=== PATIENT | male | born 1955 | race Caucasian/White ===

== ENCOUNTER → 2017-12-08 09:19 | Outpatient (CLI) | payer OTHER, SELFPAY ==
--- NOTE | 2017-11-12 14:35 | EKG12_ITS ---
Test Reason : PRE-OP Blood Pressure : / mmHG Vent. Rate : 064 BPM Atrial Rate : 064 BPM P-R Int : 188 ms QRS Dur : 090 ms QT Int : 416 ms P-R-T Axes : 025 -15 -04 degrees QTc Int : 429 ms Normal sinus rhythm Inferior infarct , age undetermined Abnormal ECG Confirmed by YOLY HOLCOMB, ANN ([id number]), image editor JAYCEE HILL ([id number]) on 11/13/2017 11:35:03 AM Referred By: GERI Confirmed By:ANN FREDERICK MD
[2017-11-12 15:18] LABS: Hematocrit 49.4 % (40-54); Hemoglobin 16.1 g/dl (13.0-16.5); Mean Corp Hgb Conc 32.6 g/gl (32-36); Mean Corpuscular Hgb 29.8 pg (27.0-32.0); Mean Corpuscular Volume 91.3 fL (80-94); Mean Platelet Vol. 11.7 fl (6.2-12.0); Platelet Count 144 K/mm3 (150-450); RBC Distribution Width CV 13.7 % (11.6-14.6); RBC Distribution Width SD 45.1 fl (35.1-43.9); Red Blood Count 5.41 M/mm3 (4.6-6.2); White Blood Count 6.5 K/mm3 (4.4-11.0)
[2017-11-12 15:31] LABS: Hemoglobin A1c 6.6 % (4.2-6.3)
[2017-11-12 15:44] LABS: Anion Gap 7 (5-15); BUN 13 mg/dL (7-18); BUN/Creat Ratio 16.4 RATIO (10-20); Calcium,Total 8.6 mg/dL (8.5-10.1); Chloride 106 mmol/L (98-107); Creatinine, Serum 0.79 mg/dL (0.70-1.30); EST Glomerular Filtration Rate 105 mL/min (>60); Est Glom Filt Rate - Afr Amer 127 mL/min (>60); Glucose 92 mg/dL (70-110); Potassium 3.6 mmol/L (3.5-5.1); Sodium Level 143 mmol/L (136-145)
[2017-11-12 15:51] LABS: Scan Indicated on CBC? Y/N NO
== END ==
PROVIDERS: Family Provider Family Medicine Geriatric Medicine; PCP Family Medicine Geriatric Medicine; Visit Provider Surgery
DX: Z01.818 Encounter for other preprocedural examination (principal); I10 Essential (primary) hypertension; E11.9 Type 2 diabetes mellitus without complications
CPT/HCPCS: 36415; 80048; 83036; 85027; 93005

== ENCOUNTER → 2017-12-22 06:46 | Outpatient (CLI) | payer OTHER, SELFPAY ==
--- NOTE | 2017-12-22 10:00 | ECHOCS_ITS ---
Reason For Study: murmur Procedure This was a 2D Doppler, Color Flow transthoracic echocardiogram. The exam was of fair technical quality due to body habitus. Exam performed in department. Left Ventricle Normal LV size. Left ventricular systolic function is normal. The estimated ejection fraction is 60 %. Transmitral doppler flow suggestive of impaired relaxation of left ventricle. No regional wall motion abnormalities noted. Right Ventricle Normal RV size. Normal systolic function. Atria The left atrium is mildly enlarged. Normal right atrium. No doppler evidence for ASD. Mitral Valve There is no mitral annular calcification. Normal mitral valve. Trivial mitral valve insufficiency. Tricuspid Valve Normal tricuspid valve. Trivial tricuspid valve insufficiency. Right ventricular systolic pressure estimated to be 33 mmHg. Aortic Valve Trisinus/trileaflet aortic valve. Normal aortic valve. Pulmonic Valve The pulmonic valve is not well visualized. Trivial pulmonic valve insufficiency. Great Vessels Borderline enlarged aortic root. Pericardium/Pleural No pericardial effusion. Medication Diluted definity 4.0ml given slow IV push to enhance endocardial definition. MMode/2D Measurements & Calculations LVIDd: 4.7 cm IVSd: 1.4 cm Ao root diam: 3.8 cm LVIDs: 3.1 cm LVPWd: 1.2 cm LA dimension: 3.9 cm RVDd: 3.0 cm FS: 33.5 % LAV(MOD-bp): 82.0 ml LA A4 area: 24.3 cm2 RA A4 area: 15.7 cm2 LAV(MOD-bp) Indexed: 35.8 ml/m2 LAV(MOD-sp2): 70.6 ml LAV(MOD-sp4): 79.5 ml Time Measurements MV dec time: 0.26 sec Doppler Measurements & Calculations MV E max krunal: 51.4 cm/sec Lat Peak E' Krunal: 4.1 cm/sec Med Peak E' Krunal: 5.4 cm/sec MV A max krunal: 77.6 cm/sec E/E' lat: 12.7 E/E' med: 9.5 MV E/A: 0.66 Ao V2 max: 126.1 cm/sec LV V1 max: 87.8 cm/sec PA V2 max: 87.2 cm/sec Ao max P.4 mmHg LV V1 max P.1 mmHg TR max krunal: 272.6 cm/sec TR max P.7 mmHg Interpretation Summary Left ventricular systolic function is normal. The estimated ejection fraction is 60 %. The left atrium is mildly enlarged. Trivial mitral valve insufficiency. Trivial tricuspid valve insufficiency. Trivial pulmonic valve insufficiency. Borderline enlarged aortic root. Right ventricular systolic pressure estimated to be 33 mmHg. Transmitral doppler flow suggestive of impaired relaxation of left ventricle Ordering Physician: Kofi Boykin Referring Physician: Harry Mason Chi Performed By: Delphine Allen RDCS, RVT
--- NOTE | 2017-12-22 13:50 | STRESSREP ---
Stress Test Report Date: 12/22/2017 Procedure: Exercise tolerance test/imaging study Indications: Abnormal ECG; preoperative cardiovascular evaluation Consent: Per the patient Procedure: The patient underwent exercise on a Jose David protocol for 6 minutes and 30 seconds completing stage II and 30 seconds of stage III achieving a peak heart rate of 144 bpm (91% predicted maximal heart rate) with a peak blood pressure 186/90 mmHg and a peak MET capacity of approximately 7 MET's. The baseline ECG demonstrated normal sinus rhythm. The peak exercise ECG demonstrated no obvious ECG changes. There was a rare PVC/ventricular couplet during exercise and a rare PVC during recovery. The functional capacity was considered average. There was no report of chest discomfort during exercise or recovery. The examination was discontinued secondary to fatigue. Impression: 1. Technically adequate (percent predicted maximal heart rate greater than 85%) exercise tolerance test 2. Peak exercise ECG with no obvious ECG changes 3. Rare PVCs/ventricular couplet during exercise and a rare PVC during recovery 4. Nuclear images pending Myocardial perfusion imaging study: Technique: The patient was injected with 14.7 mCi of technetium 99m Cardiolite and subsequently rest SPECT Cardiolite nuclear imaging was obtained in the horizontal long, vertical long, and short axis views. The patient underwent exercise on a Jose David protocol for 6 minutes and 30 seconds completing stage II and 30 seconds of stage III achieving a peak heart rate of 144 bpm (91% predicted maximal heart rate) with a peak blood pressure 186/90 mmHg and a peak MET capacity of approximately 7 MET's the patient was injected with 44.4 mCi of technetium 99m Cardiolite and subsequently stress SPECT currently nuclear imaging was obtained in the horizontal long, vertical long, and short axis views. A gated Cardiolite study at peak stress was obtained. Interpretation: Rest and stress SPECT currently nuclear imaging status post realignment, normalization, and attenuation correction, demonstrates the appearance of relative uniform tracer uptake and myocardial perfusion appearing within normal limits. There is end-systolic thickening and brightening. The gated Cardiolite study demonstrates myocardial thickening and end were wall motion. The reported LVEF is 62%. Impression: 1. Rest and stress SPECT currently nuclear imaging demonstrates the appearance of relative uniform tracer uptake and myocardial perfusion appearing within normal limits. 2. The gated Cardiolite study demonstrates an LVEF of 62%. This note was generated with [employer] software. It may contain incorrect words, spelling, and punctuation that were not noted in checking the note before signing.
--- NOTE | 2017-12-22 13:58 | STRESSREP_ITS ---
Stress Test Report Date: 12/22/2017 Procedure: Exercise tolerance test/imaging study Indications: Abnormal ECG; preoperative cardiovascular evaluation Consent: Per the patient Procedure: The patient underwent exercise on a Jose David protocol for 6 minutes and 30 seconds completing stage II and 30 seconds of stage III achieving a peak heart rate of 144 bpm (91% predicted maximal heart rate) with a peak blood pressure 186/90 mmHg and a peak MET capacity of approximately 7 MET's. The baseline ECG demonstrated normal sinus rhythm. The peak exercise ECG demonstrated no obvious ECG changes. There was a rare PVC/ventricular couplet during exercise and a rare PVC during recovery. The functional capacity was considered average. There was no report of chest discomfort during exercise or recovery. The examination was discontinued secondary to fatigue. Impression: 1. Technically adequate (percent predicted maximal heart rate greater than 85% ) exercise tolerance test 2. Peak exercise ECG with no obvious ECG changes 3. Rare PVCs/ventricular couplet during exercise and a rare PVC during recovery 4. Nuclear images pending Myocardial perfusion imaging study: Technique: The patient was injected with 14.7 mCi of technetium 99m Cardiolite and subsequently rest SPECT Cardiolite nuclear imaging was obtained in the horizontal long, vertical long, and short axis views. The patient underwent exercise on a Jose David protocol for 6 minutes and 30 seconds completing stage II and 30 seconds of stage III achieving a peak heart rate of 144 bpm (91% predicted maximal heart rate) with a peak blood pressure 186/90 mmHg and a peak MET capacity of approximately 7 MET's the patient was injected with 44.4 mCi of technetium 99m Cardiolite and subsequently stress SPECT currently nuclear imaging was obtained in the horizontal long, vertical long, and short axis views. A gated Cardiolite study at peak stress was obtained. Interpretation: Rest and stress SPECT currently nuclear imaging status post realignment, normalization, and attenuation correction, demonstrates the appearance of relative uniform tracer uptake and myocardial perfusion appearing within normal limits. There is end-systolic thickening and brightening. The gated Cardiolite study demonstrates myocardial thickening and end were wall motion. The reported LVEF is 62%. Impression: 1. Rest and stress SPECT currently nuclear imaging demonstrates the appearance of relative uniform tracer uptake and myocardial perfusion appearing within normal limits. 2. The gated Cardiolite study demonstrates an LVEF of 62%. This note was generated with [employer] software. It may contain incorrect words, spelling, and punctuation that were not noted in checking the note before signing.
== END ==
PROVIDERS: Family Provider Family Medicine Geriatric Medicine; PCP Family Medicine Geriatric Medicine; Visit Provider Internal Medicine Cardiovascular Disease
DX: R94.31 Abnormal electrocardiogram [ECG] [EKG] (principal); R01.1 Cardiac murmur, unspecified
CPT/HCPCS: 78452; 93017; 93306; A9500; Q9957; A4216; C8929

== ENCOUNTER 2018-01-26 05:19 | Day surgery (SDC) | payer OTHER, SELFPAY ==
[2018-01-20 10:12] VITALS: BP 139/86; PULSE 69; RESP 18; TEMP 37; O2SAT 96; BMI 32.5
--- NOTE | 2018-01-20 10:30 | SDCEKG_ITS ---
Test Reason : Blood Pressure : / mmHG Vent. Rate : 067 BPM Atrial Rate : 067 BPM P-R Int : 190 ms QRS Dur : 092 ms QT Int : 410 ms P-R-T Axes : 010 -19 -08 degrees QTc Int : 433 ms Normal sinus rhythm Inferior infarct , age undetermined Abnormal ECG Confirmed by YOLY HOLCOMB, ANN ([id number]), acquisition editor JAYCEE HILL ([id number]) on 01/22/2018 1:36:09 PM Referred By: Angel Gregorio Confirmed By:ANN FREDERICK MD
--- NOTE | 2018-01-20 11:00 | RAD_ITS ---
STUDY: X-RAY CHEST REASON FOR EXAM: Male, 63 years old. Preoperative evaluation. History of bronchitis. TECHNIQUE: PA and lateral views of the chest. COMPARISON: None. FINDINGS: Mild elevation of the right hemidiaphragm. Mild increased linear markings at the left lung base suggestive of atelectasis and/or scarring. Normal size heart. Normal mediastinum and georges. Normal visualized pulmonary arteries. There is atherosclerotic tortuosity of the aortic arch and descending thoracic aorta. There are diffuse degenerative changes of the visualized thoracic spine. Multiple healed left rib fractures. There is no demonstrated abnormality of the visualized soft tissue structures of the upper abdomen. RAD/Chest PA and Lateral IMPRESSION: Mild degree of increased markings at the left lung base suggestive of underlying atelectasis and/or scarring. Electronically Signed: Jerel Dotson MD at 11:34 EDT Tel [phone], Service support ,
[2018-01-20 11:46] LABS: Hematocrit 48.1 % (40-54); Hemoglobin 15.9 g/dl (13.0-16.5); Mean Corp Hgb Conc 33.1 g/gl (32-36); Mean Corpuscular Hgb 29.9 pg (27.0-32.0); Mean Corpuscular Volume 90.6 fL (80-94); Mean Platelet Vol. 12.1 fl (6.2-12.0); Platelet Count 149 K/mm3 (150-450); RBC Distribution Width CV 13.5 % (11.6-14.6); Red Blood Count 5.31 M/mm3 (4.6-6.2); White Blood Count 6.6 K/mm3 (4.4-11.0)
[2018-01-20 11:52] LABS: Scan Indicated on CBC? Y/N NO
[2018-01-20 12:45] LABS: Anion Gap 6 (5-15); BUN 13 mg/dL (7-18); BUN/Creat Ratio 15.3 RATIO (10-20); Calcium,Total 8.4 mg/dL (8.5-10.1); Chloride 107 mmol/L (98-107); Creatinine, Serum 0.85 mg/dL (0.70-1.30); EST Glomerular Filtration Rate 97 mL/min (>60); Est Glom Filt Rate - Afr Amer 117 mL/min (>60); Estimated Creatinine Clearance 99.22 ml/min; Glucose 114 mg/dL (74-106); Potassium 3.9 mmol/L (3.5-5.1); Sodium Level 143 mmol/L (136-145)
[2018-01-20 12:54] LABS: Hemoglobin A1c 6.4 % (4.2-6.3)
--- NOTE | 2018-01-26 | HERN_PTH ---
PATIENT: MARY ALICE YAÑEZ [place] [facility] [id number] AGE/SX: 63/M ROOM: RE01/26/[address]: Dr. Angel Gregorio MD : [id number] BED: DIS: 01/26/2018 SPEC #: [id number] RECD: 01/26/18 11:21 STATUS: WILMA MARION #: [id number] SCOTT: 01/26/18 00:[address]: Angel Gregorio DEPT: SURGICAL PATHOLOGY RECD BY: Jerel Astudillo ENTERED: 01/26/18 11:22 SP TYPE: Hernia OTHR DR: Dr. Harry Mason MD Tissues: A - HERNIA B - Gallbladder, NOS Procedures: Surgery Specimen Level II Surgery Specimen Level III HEADER OPERATION: Laparoscopic cholecystectomy with IOC; ventral hernia repair at umbilicus PRE-OP DIAGNOSIS: Chronic cholecystitis, gallbladder polyp, ventral hernia at umbilicus TISSUE SUBMITTED: A ? Hernia sac and contents, B - Gallbladder MICROSCOPIC DIAGNOSIS A. Hernia sac and contents, herniorrhaphy: Consistent with hernia sac with lobulated fat contents showing fat necrosis, fibrosis and mild chronic inflammation. B. Gallbladder, cholecystectomy: Cholesterolosis and chronic cholecystitis. Minute fragment of hepatic parenchyma with mild microvesicular and macrovesicular steatosis. AM:moon 01/27/18 MICROSCOPIC DESCRIPTION Slides are reviewed. GROSS DESCRIPTION A - Received in fixative is one container labeled with the patient's name and designated hernia sac and contents. The specimen consists of a sac-like fragment of baeza soft tissue measuring 7 x 4 x 0.8 cm. Sections reveal yellow-baeza cut surfaces with focal chalky appearance. Manager Fraud sections are submitted in one cassette. B - Received is one container labeled with the patient's name and designated gallbladder. The specimen consists of a gallbladder measuring 10 x 4.5 x 4.2 cm. The external surface is smooth and glistening. Focally, it is granular, hemorrhagic and contains cautery artifact. The lumen of the gallbladder contains greenish-yellow bile and no stones. The mucosa is bile-stained and without any mass lesions. The gallbladder wall averages 0.2 cm in thickness and displays chalky, yellow discoloration. Manager Fraud sections of the gallbladder and the cystic duct are submitted in one cassette. / AM:moon 01/26/18 TC:3 CPT: 85516, 12943
[2018-01-26 06:00] VITALS: BMI 32.5
--- NOTE | 2018-01-26 06:04 | PCM.HP.STD ---
Problem List (1) Chronic cholecystitis Status: Acute (2) Gallbladder polyp Status: Acute History of Present Illness Date of Admission: 01/26/18 The patient is a 63 year old M who was evaluated with a gallbladder ultrasound October 08, 2017. There was sludge in the gallbladder. 2 small polyps noted the common bile duct was normal. Patient's had a previous rib fracture. Patient has a midline supraumbilical ventral hernia and a additional separate umbilical hernia. He has been having problems with right upper quadrant pain. Postprandial discomfort. 3 weeks ago he had bronchitis was placed on antibiotics and is improved. He has improved from his rib fractures. He is presenting now for planned laparoscopic cholecystectomy. Subsequent to that then he would like to plan a laparoscopic ventral herniorrhaphy of his 2 hernias. Past Medical History Past Medical History (Chronic Problems): Chronic Problems (Last Reviewed 12/03/17 @ 15:15 by Maryellen Calix) Cough (Chronic) Normal previous PFT Allergic rhinitis (Chronic) HTN (hypertension) (Chronic) Allergies cortisone Allergy (Severe, Verified 01/20/18 10:08) Unknown Sulfa (Sulfonamide Antibiotics) Allergy (Mild, Verified 01/20/18 10:08) Unknown Home Medications: Ambulatory Orders Medication Instructions Recorded aspirin 81 mg tablet,delayed 81 mg PO QDAY 10/22/17 release cholecalciferol (vitamin D3) 50,000 unit PO QWEEK 10/22/17 50,000 unit capsule losartan 50 mg tablet 50 mg PO DAILY 10/22/17 metformin 500 mg tablet 500 mg PO DAILY 10/22/17 Lecithin 1,200 mg PO DAILY 11/12/17 beclomethasone dipropionate 80 2 inh INTRANASAL QDAY PRN g 12/03/17 mcg/actuation nasal HFA inhaler coenzyme Q10 200 mg capsule 200 mg PO QDAY 12/03/17 Guaifenesin [Mucinex] 600 mg PO Q12H PRN PRN 01/20/18 Smoking Status: Never smoker Review of Systems Constitutional: Denies: Anorexia Eyes: Denies: Blurred vision HEENT: Denies: Difficulty Hearing Cardiovascular: Denies: Chest Pain Respiratory: Reports: Cough Gastrointestinal: Reports: Abdominal Pain Genitourinary: Denies: Dysuria Musculoskeletal: Denies: Arm Pain Skin: Denies: Dryness Neurological: Denies: Balance problems Psychiatric: Denies: Anxiety Endocrine: Denies: Change in Body Habitus Hematologic/ Lymphatic: Denies: Adenopathy VTE Information - Inpt Only VTE Present on Admission: No Patient Problems: Active and Suspected Problems (Last Reviewed 12/03/17 @ 15:15 by Maryellen Calix) Chronic cholecystitis (Acute) Gallbladder polyp (Acute) - Physical Exam General: Alert, Oriented x3, Cooperative, No apparent distress HEENT: Atraumatic Oral: Moist Mucosa Neck: Supple Lungs: Clear to auscultation Cardiovascular: Regular rate, Regular Rhythm Abdomen: Bowel Sounds Present, Soft, - - Overweight, ventral hernias noted at the umbilicus and superiorly Extremities: No clubbing Skin: No rashes Lymphatic: No Cervical, Supraclavicular, or Inguinal Adenopathy Neurological: Cranial nerves II-XII grossly intact Vital Signs Temp Pulse Resp BP Pulse Ox 98.6 F 69 18 139/86 H 96 01/20/18 10:12 01/20/18 10:12 01/20/18 10:12 01/20/18 10:12 01/20/18 10:12 Oxygen Delivery Method Room Air Weight: 246 lb 4.101 oz Body Mass Index (BMI) 32.5 Assessment/Plan Active and Suspected Problems (Last Reviewed 12/03/17 @ 15:15 by Maryellen Calix) Chronic cholecystitis (Acute) Gallbladder polyp (Acute) I plan to proceed with a laparoscopic cholecystectomy remove the gallbladder and anticipated polyps. I plan to do this via a infraumbilical incision to avoid complications with the umbilical hernia. He is aware of the technique, benefits, risks, alternatives. In the future that I plan a laparoscopic ventral incisional herniorrhaphy of the umbilical hernia and supraumbilical hernia. There is definitive reason and means of removing the gallbladder definitive thing having pathology prior to performing a ventral hernia repair. The patient has had an opportunity to ask and have questions answered. He desires to proceed as noted. He states that his cough and pulmonary situation is improved since October. Angel Gregorio M.D., F.A.C.S.
[2018-01-26 06:06] LABS: Bedside Glucose 122 mg/dL (70-110)
--- NOTE | 2018-01-26 06:52 | PCM.DC.GS ---
Discharge Diet: Light diet - advance as tolerated - if you have questions about your diet instructions, please talk to you doctor. Discharge Activity: May Not Drive - for 1 week or while taking narcotic pain medicine. May shower in (days): 1 Lifting Restrictions: 10 pounds Call your doctor if your incision/area has: Continuous Slow Oozing, Sudden Increased Bleeding, Increased Pain/ Swelling, Increased Redness, Foul Smelling Discharge Call your doctor if you observe: Fever of 101 or Higher Suture Line Care: Avoid Pulling/Pushing, Avoid Pinching/Bending Additional Dressing/Incision Instructions:: Change or remove dressing in 4 days. Leave steri-strips in place for 1 week. Allergies/Adverse Reactions: Allergies cortisone Allergy (Severe, Verified 01/20/18 10:08) Unknown Sulfa (Sulfonamide Antibiotics) Allergy (Mild, Verified 01/20/18 10:08) Unknown Medications to take at Discharge aspirin 81 mg tablet,delayed release 81 mg PO QDAY 10/22/17 cholecalciferol (vitamin D3) 50,000 unit capsule 50,000 unit PO QWEEK 10/22/17 losartan 50 mg tablet 50 mg PO DAILY 10/22/17 metformin 500 mg tablet 500 mg PO DAILY 10/22/17 Lecithin 1,200 mg PO DAILY 11/12/17 beclomethasone dipropionate 80 mcg/actuation nasal HFA inhaler 2 inh INTRANASAL QDAY PRN g 12/03/17 coenzyme Q10 200 mg capsule 200 mg PO QDAY 12/03/17 Guaifenesin [Mucinex] 600 mg PO Q12H PRN PRN 01/20/18 Primary Care Physician: Harry Mason Chi, MD [Primary Care Provider] - Please Follow Up With: Angel Gregorio MD - [phone] When: Call to make an appointment to be seen in about 10 days.
[2018-01-26] MEDS: Cefazolin 2 GM in 0.9% Normal Saline 100 ML IV (07:11)
--- NOTE | 2018-01-26 07:15 | RAD_ITS ---
STUDY: INTRAOPERATIVE CHOLANGIOGRAM. REASON FOR EXAM: Male, 63 years old. Laparoscopic cholecystectomy. FLUOROSCOPY TIME (if supplied): (24 seconds) minutes/seconds TECHNIQUE: An intraoperative cholangiogram was performed by the surgeon. Imaging was submitted. COMPARISON: None. FINDINGS: The common bile duct is not dilated. No intraluminal filling defect is seen. There is free flow of contrast into the duodenum. RAD/Cholangiogram/ O R,Initial IMPRESSION: Unremarkable examination. Electronically Signed: Jerel Dotson MD at 11:05 EDT Tel [phone], Service support ,
[2018-01-26] MEDS: Bupivacaine Mpf 0.5% 30 ML VIAL (07:30)
--- NOTE | 2018-01-26 08:37 | PCM.OPRPT ---
Problem List (1) Chronic cholecystitis Status: Acute (2) Gallbladder polyp Status: Acute Report of Operation Date of Procedure: 01/26/18 Pre-Operative Diagnosis: Chronic cholecystitis, gallbladder polyps,Umbilical and ventral hernias Post-Operative Diagnosis: Chronic cholecystitis, gallbladder polyps, incarceratedUmbilical hernia Surgery/Procedure Performed:: Laparoscopic cholecystectomy with cholangiograms. Incarcerated umbilical herniorrhaphy Description of Surgical Findings:: Timeout and informed consent was obtained. 63-year-old gent was taken the operative placement table underwent general ventricular-based anesthesia. Ancef 2 g given intravenous preoperatively. The abdomen sterilely prepped draped. It became apparent that since his previous appointment in October 2017 he has had bronchitis with vigorous coughing. What previously was a simple umbilical hernia now demonstrates clinical evidence of tight incarceration. Although I had previously planned not to address the hernia at this time I felt that there was no other option. A curvilinear infraumbilical incision was created sharp dissection carried down to Herr tissue tight incarceration and a very tight sac was encountered. I dissected down to the neck were I incised the sac. There was no bowel involvement. Hemostasis obtained with 0 Vicryl ligatures and electrocautery. The sac and contents were released and then submitted. This is consistent with incarcerated likely partially necrotic preperitoneal fat. As on catheter was inserted. The abdomen was insufflated with CO2. There is a separate hernia ventral hernia that is superior to the umbilical hernia. Fortunately currently there are no contents within that. Five-minute trochars are placed in the epigastrium and right upper quadrant. The gallbladder was distracted. There was a significant amount of fibrofatty tissue at the infundibular area. This had to be carefully bluntly dissected free. The critical view was achieved with the cystic duct and cystic artery identified. A Hem-o-cara clip was placed on the cystic duct incision in the cystic duct cholangiogram cath was inserted through a 14-gauge Angiocath and fluoroscopically controlled claims grams were obtained demonstrating normal ductal anatomy and free flow into the small bowel. The client Mitchell catheter was removed and 2 Hem-o-cara clips were placed on the cystic duct prior to transecting it. Cystic artery was clipped twice proximally prior to transecting it. The gallbladder was tediously dissected free from the liver bed using electrocautery. Complete hemostasis was intact. To further assure hemostasis a piece of fibular was placed in the liver bed portal area. The right upper quadrant was irrigated and aspirated free of excess fluid. The gallbladder was placed in retrieval bag and exited at the umbilicus. The remaining trochars removed under visualization. The fascia at the umbilicus was approximated with simple sutures of 0 Nurolon in a transverse fashion. Skin edges proximate interrupted 4 Monocryl subdermal stitches. Steri-Strips Telfa and OpSite dressings applied. Sponge instrument and needle counts were reported to the surgeon to be correct. Blood loss was minimal. Specimens include the gallbladder and the incarcerated umbilical hernia sac and contents. Drains none. Blood loss minimal. Angel Gregorio M.D., F.A.C.S. Type of Anesthesia:: General Anesthesiologist: Luis Barry
[2018-01-26 09:03] VITALS: BP 139/86; BP 156/91; PULSE 96; RESP 18; TEMP 36.1; O2SAT 94
[2018-01-26 09:15] VITALS: BP 136/92; BP 139/86; PULSE 87; RESP 16; O2SAT 100
[2018-01-26 09:30] VITALS: BP 139/86; BP 149/84; PULSE 78; RESP 16; O2SAT 96
[2018-01-26 09:41] LABS: Bedside Glucose 149 mg/dL (70-110)
[2018-01-26 09:45] VITALS: BP 139/86; BP 153/89; PULSE 78; RESP 16; TEMP 36.3; O2SAT 97
[2018-01-26] MEDS: HYDROcodone Bitartrate/Apap 5/325 Tablet PO (10:08)
[2018-01-26 10:47] VITALS: BP 139/86
== END 2018-01-26 11:16 | disposition home or self-care (01) ==
LOC: SDC 05:19 → AC 05:20
PROVIDERS: Anesthesiology; Family Provider Family Medicine Geriatric Medicine; PCP Family Medicine Geriatric Medicine; Visit Provider Surgery
PROC: (CPT 47610; principal; 2018-01-26 06:55)
DX: K81.2 Acute cholecystitis with chronic cholecystitis (principal); K43.9 Ventral hernia without obstruction or gangrene; I10 Essential (primary) hypertension; E11.9 Type 2 diabetes mellitus without complications; K42.0 Umbilical hernia with obstruction, without gangrene; E78.00 Pure hypercholesterolemia, unspecified
CPT/HCPCS: 00790; 47563; 49587; 36415; 74300; 76000; 80048; 82962; 83036; 85027; 88302; 88304; J7120; J2405

== ENCOUNTER → 2018-02-12 09:09 | Outpatient (CLI) | payer OTHER, SELFPAY ==
[2018-02-12 11:29] LABS: Absolute Lymphocyte Count 1.52 X10^3/ul (0.83-4.51); Absolute Neutrophil Count 5.2 X10^3/uL (2.0-7.7); Basophil# 0.01 X10^3/uL; Basophil% 0.1 % (0-1); Eosinophil# 0.12 X10^3/uL; Eosinophils% 1.6 % (0-5); Hematocrit 51.1 % (40-54); Hemoglobin 17.1 g/dl (13.0-16.5); Lymphocyte # 1.52 X10^3/ul (4.0); Lymphocyte % 20.2 % (19-41); Mean Corp Hgb Conc 33.5 g/gl (32-36); Mean Corpuscular Hgb 29.7 pg (27.0-32.0); Mean Corpuscular Volume 88.7 fL (80-94); Mean Platelet Vol. 12.4 fl (6.2-12.0); Monocyte# 0.68 X10^3/uL; Monocyte% 9.1 % (0-10); Neutrophil # 5.17 X10^3/uL (2.7-7.7); Neutrophil % 68.9 % (47-70); Platelet Count 155 K/mm3 (150-450); RBC Distribution Width CV 13.8 % (11.6-14.6); RBC Distribution Width SD 44.8 fl (35.1-43.9); Red Blood Count 5.76 M/mm3 (4.6-6.2); White Blood Count 7.5 K/mm3 (4.4-11.0)
[2018-02-12 11:34] LABS: POSITIVE COUNT NO; POSITIVE DIFFERENTIAL NO; POSITIVE MORPHOLOGY NO
[2018-02-12 11:54] LABS: ALB/GLOB Ratio 0.9 RATIO (0.9-2.4); AST(SGOT) 21 U/L (15-37); Alanine Aminotransfer ALT/SGPT 39 U/L (16-61); Albumin, Serum 3.7 g/dL (3.2-5.0); Alkaline Phosphatase 76 U/L (45-117); Anion Gap 9 (5-15); BUN 17 mg/dL (7-18); BUN/Creat Ratio 18.3 RATIO (10-20); Calcium,Total 8.5 mg/dL (8.5-10.1); Chloride 104 mmol/L (98-107); Creatinine, Serum 0.93 mg/dL (0.70-1.30); EST Glomerular Filtration Rate 87 mL/min (>60); Est Glom Filt Rate - Afr Amer 105 mL/min (>60); Globulin 3.9 g/dL (2.2-4.2); Glucose 138 mg/dL (74-106); Potassium 3.9 mmol/L (3.5-5.1); Protein, Total 7.6 g/dL (6.4-8.2); Sodium Level 140 mmol/L (136-145); Thyroid Stim Hormone (TSH) 2.35 uIU/mL (0.358-3.74)
[2018-02-12 12:01] LABS: Vitamin D,25 Hydroxy 70.3 ng/mL (29.95-100.01)
== END ==
PROVIDERS: Family Provider Family Medicine Geriatric Medicine; PCP Family Medicine Geriatric Medicine; Visit Provider Family Medicine Geriatric Medicine
DX: E11.9 Type 2 diabetes mellitus without complications (principal); E55.9 Vitamin D deficiency, unspecified; I10 Essential (primary) hypertension
CPT/HCPCS: 36415; 80053; 82306; 84443; 85025

== ENCOUNTER → 2018-05-06 08:00 | Outpatient (CLI) | payer OTHER, SELFPAY ==
[2018-05-06 08:09] VITALS: BP 141/92; PULSE 66; RESP 14; TEMP 36.9; O2SAT 97; BMI 33.3
--- NOTE | 2018-05-06 08:44 | SDCEKG_ITS ---
Test Reason : Blood Pressure : / mmHG Vent. Rate : 062 BPM Atrial Rate : 062 BPM P-R Int : 198 ms QRS Dur : 086 ms QT Int : 412 ms P-R-T Axes : 024 -17 -08 degrees QTc Int : 418 ms Normal sinus rhythm Inferior infarct , age undetermined Abnormal ECG Confirmed by YOLY HOLCOMB, ANN ([id number]), video editor JAYCEE HILL ([id number]) on 05/10/2018 3:06:49 PM Referred By: Angel Gregorio Confirmed By:ANN FREDERICK MD
[2018-05-06 09:30] LABS: Hematocrit 45.2 % (40-54); Hemoglobin 15.4 g/dl (13.0-16.5); Mean Corp Hgb Conc 34.1 g/gl (32-36); Mean Corpuscular Hgb 30.6 pg (27.0-32.0); Mean Corpuscular Volume 89.7 fL (80-94); Mean Platelet Vol. 12.1 fl (6.2-12.0); Platelet Count 148 K/mm3 (150-450); RBC Distribution Width CV 13.6 % (11.6-14.6); RBC Distribution Width SD 44.5 fl (35.1-43.9); Red Blood Count 5.04 M/mm3 (4.6-6.2); White Blood Count 4.6 K/mm3 (4.4-11.0)
[2018-05-06 09:37] LABS: Scan Indicated on CBC? Y/N NO
[2018-05-06 09:49] LABS: Anion Gap 6 (5-15); BUN 13 mg/dL (7-18); BUN/Creat Ratio 13.9 RATIO (10-20); Calcium,Total 8.4 mg/dL (8.5-10.1); Chloride 109 mmol/L (98-107); Creatinine, Serum 0.94 mg/dL (0.70-1.30); EST Glomerular Filtration Rate 86 mL/min (>60); Est Glom Filt Rate - Afr Amer 104 mL/min (>60); Estimated Creatinine Clearance 87.14 ml/min; Glucose 122 mg/dL (74-106); Potassium 4.1 mmol/L (3.5-5.1); Sodium Level 144 mmol/L (136-145)
[2018-05-06 09:58] LABS: Hemoglobin A1c 6.5 % (4.2-6.3)
[2018-05-14 08:51] LABS: Bedside Glucose 118 mg/dL (70-110)
[2018-05-14 12:15] LABS: Bedside Glucose 155 mg/dL (70-110)
== END ==
LOC: PAT 05-18 08:34 → SDC 05-18 08:35
PROVIDERS: Family Provider Family Medicine; PCP Family Medicine; Visit Provider Surgery
DX: Z01.810 Encounter for preprocedural cardiovascular examination (principal); Z01.812 Encounter for preprocedural laboratory examination; R94.31 Abnormal electrocardiogram [ECG] [EKG]; K43.9 Ventral hernia without obstruction or gangrene
CPT/HCPCS: 36415; 80048; 82962; 83036; 85027; 93005; J7120

== ENCOUNTER 2018-05-14 13:13 | Observation (INO) | payer OTHER, SELFPAY ==
[2018-05-14] VITALS (11 sets, daily range): BP systolic 132–162; BP diastolic 80–92; PULSE 58–96; RESP 14–18; TEMP 35.9–37.1; O2SAT 94–100; BMI 33.3
--- NOTE | 2018-05-14 09:48 | DCINST_ITS ---
Discharge Diet: Light diet - advance as tolerated - if you have questions about your diet instructions, please talk to you doctor. Discharge Activity: May Not Drive - for 1 week or while taking narcotic pain medicine. May shower in (days): 1 Lifting Restrictions: 10 pounds Call your doctor if your incision/area has: Continuous Slow Oozing, Sudden Increased Bleeding, Increased Pain/ Swelling, Increased Redness, Foul Smelling Discharge Call your doctor if you observe: Fever of 101 or Higher Suture Line Care: Avoid Pulling/Pushing, Avoid Pinching/Bending Additional Dressing/Incision Instructions:: Change or remove dressing in 4 days. Leave steri-strips in place for 1 week. Allergies/Adverse Reactions: Allergies cortisone Allergy (Severe, Verified 04/29/18 14:07) Unknown Sulfa (Sulfonamide Antibiotics) Allergy (Mild, Verified 04/29/18 14:07) Unknown Medications to take at Discharge aspirin 81 mg tablet,delayed release 81 mg PO QDAY 10/22/17 cholecalciferol (vitamin D3) 50,000 unit capsule 50,000 unit PO QWEEK 10/22/17 losartan 50 mg tablet 50 mg PO DAILY 10/22/17 metformin 500 mg tablet 500 mg PO DAILY 10/22/17 Lecithin 1,200 mg PO DAILY 11/12/17 Hydrocodone Bitart/Apap 5-325 [[place] 5MG-325MG] 1 tablet PO Q6H PRN PRN 3 Days # 10 tablet 05/14/18 The following prescriptions were given: Hydrocodone Bitart/Apap 5-325 [[place] 5MG-325MG] 1 tablet PO Q6H PRN PRN 3 Days # 10 tablet PRN Reason: Pain Primary Care Physician: Stanislav Vergara MD [Primary Care Provider] - Test Results: Test results from this visit will be discussed in further detail at your follow- up appointment, if applicable. Please Follow Up With: Angel Gregorio MD - [phone] When: Call to make an appointment to be seen in about 10 days.
--- NOTE | 2018-05-14 10:05 | HERN_PTH ---
PATIENT: MARY ALICE YAÑEZ LOC: MS3 U#:[id number] AGE/SX: 63/M ROOM: [facility] [place] RE05/14/[address]: Dr. Angel Gregorio MD : [id number] BED: 1 DIS: 05/17/2018 SPEC #: [id number] RECD: 05/14/18 13:16 STATUS: WILMA MARION #: [id number] SCOTT: 05/14/18 10:[address]: Angel Gregorio DEPT: SURGICAL PATHOLOGY RECD BY: Jefry Barron ENTERED: 05/14/18 13:45 SP TYPE: Hernia OTHR DR: Dr. Rommel Vergara MD Tissues: HERNIA Procedures: Surgery Specimen Level II HEADER OPERATION: Ventral and umbilical hernia repair PRE-OP DIAGNOSIS: Ventral and umbilical hernia without obstruction or gangrene TISSUE SUBMITTED: Hernia sac and contents MICROSCOPIC DIAGNOSIS Hernia sac and contents: A piece of fibroadipose tissue consistent with hernia sac with focal area of hemorrhage and reactive changes. MIKKI:moon 05/17/18 MICROSCOPIC DESCRIPTION Slides are reviewed. GROSS DESCRIPTION Received in fixative is one container labeled with the patient's name and designated hernia sac and contents. The specimen consists of an irregular fragment of pink-yellow fibrofatty tissue measuring 7 x 5 x 3.8 cm. Sections reveal yellow fatty cut surfaces with focal organizing hemorrhage. The organizing hemorrhage area measures 2 x 1 x 1 cm. Calender Tender sections are submitted in one cassette. / AM:moon 05/14/18 TC:5 CPT: 15083
[2018-05-14] MEDS: BUPIVACAINE LIPOSOME/PF 20 ML VIAL OPERA.SITE (11:25)
--- NOTE | 2018-05-14 11:33 | PCM.OPRPT ---
Problem List (1) Incarcerated ventral hernia Status: Acute Report of Operation Date of Procedure: 05/14/18 Pre-Operative Diagnosis: Incarcerated supraumbilical ventral hernia Post-Operative Diagnosis: Incarcerated supraumbilical ventral hernia Surgery/Procedure Performed:: Laparoscopic ventral herniorrhaphy with ventral light ST mesh reference #[id number] lot number [id number] expiry date 03/06/2019 Description of Surgical Findings:: Amount and informed consent was obtained. 63-year-old gent was taken out from. He was placed on the table. Underwent general ventricular-based anesthesia. The abdomen was sterilely prepped draped. Ioban draping was utilized as well. Patient received 2 g of Ancef intravenously. A transverse incision was made supraumbilically at site of the incarcerated hernia sharp and blunt dissection identified this very fibrofatty incarcerated sac with suggestion of bowel involvement was not able to completely easily freelist the tissue was very thick and so I elected to gain access to a 5 mm Visiport technology in the right upper quadrant. 0.5% Marcaine was used as local anesthetic throughout the procedure total 20 cc was used local was instilled and a 5 mm Visiport was used to gain access in the right upper quadrant and direct visualization. The abdomen was insufflated with CO2 to a pressure of 10 mmHg pressure. 5 minute trocar inserted no of any trocar injuries inspection revealed that there had been a loop of small bowel within that hernia but with the air pressure released itself. I then used electrocautery to transect a very thickened fibrofatty sac and contents. I partially approximated that wound with interrupted 0 Nurolon [id number] sutures. Placed in a Roldan catheter. There is evidence of the umbilical incision that it just been recently closed relating to the patient's recent laparoscopic cholecystectomy there was felt to possibly be of further hernia more inferiorly P. Fatty fatty tissue was incised with hot scissors to allow for place for mesh to see. I utilized a a 17.8 x 22.9 piece of ventral light ST mesh was selected. I slightly shortened the length. I placed 4 corner sutures of 2-0 Prolene. The mesh was curled in place within the abdomen through the assigned catheter. 2 5 mm ports had been placed on the right abdomen and to family reports placed in the left midabdomen the mesh was unfurled. An 11 blade was used to make stab incisions and a grainy needle was used to parachuted the mesh up to the abdominal wall. I then removed the Roldan catheter and used [id number]-je-qrmzy sutures of 0 Nurolon to finish that fascial closure. Then you secure strap at the periphery at about 2 cm separations to completely secure the periphery of the mesh up against the anterior abdominal wall. I did utilize a total of 2 azul to secure the periphery of the mesh and the central portion the mesh to prevent seroma. Excellent coverage of the defect area was achieved. I then irrigated the mesh to allow for moisture. Major the greater omentum was down as far as I can get it to reach. I performed a tap block did this with Exparel 20 cc diluted with saline to 100 cc total. Block was performed under laparoscopic visualization. Finally trochars were removed the abdomen was allowed to deflate of CO2. Skin edges proximate interrupted 4 Monocryl subdermal stitches in an interrupted or running fashion. Steri-Strips and Telfa and OpSite dressings were applied. Sponge and instrument and needle counts were reported the surgeon for correct. Blood loss was minimal. The specimen includes the incarcerated hernia sac with fibrofatty contents. No drains. Blood loss minimal. The patient was taken to the recovery area in satisfactory condition. Angel Gregorio M.D., F.A.C.S. Type of Anesthesia:: General
[2018-05-14] MEDS: Bupivacaine Mpf 0.5% 30 ML VIAL (11:38)
--- NOTE | 2018-05-14 11:38 | OP.PCM_ITS ---
Problem List (1) Incarcerated ventral hernia Status: Acute Report of Operation Date of Procedure: 05/14/18 Pre-Operative Diagnosis: Incarcerated supraumbilical ventral hernia Post-Operative Diagnosis: Incarcerated supraumbilical ventral hernia Surgery/Procedure Performed:: Laparoscopic ventral herniorrhaphy with ventral light ST mesh reference #[id number] lot number [id number] expiry date 03/06/2019 Description of Surgical Findings:: Amount and informed consent was obtained. 63-year-old gent was taken out from. He was placed on the table. Underwent general ventricular-based anesthesia. The abdomen was sterilely prepped draped. Ioban draping was utilized as well. Patient received 2 g of Ancef intravenously. A transverse incision was made supraumbilically at site of the incarcerated hernia sharp and blunt dissection identified this very fibrofatty incarcerated sac with suggestion of bowel involvement was not able to completely easily freelist the tissue was very thick and so I elected to gain access to a 5 mm Visiport technology in the right upper quadrant. 0.5% Marcaine was used as local anesthetic throughout the procedure total 20 cc was used local was instilled and a 5 mm Visiport was used to gain access in the right upper quadrant and direct visualization. The abdomen was insufflated with CO2 to a pressure of 10 mmHg pressure. 5 minute trocar inserted no of any trocar injuries inspection revealed that there had been a loop of small bowel within that hernia but with the air pressure released itself. I then used electrocautery to transect a very thickened fibrofatty sac and contents. I partially approximated that wound with interrupted 0 Nurolon tervie-jk-ayqwl sutures. Placed in a Roldan catheter. There is evidence of the umbilical incision that it just been recently closed relating to the patient's recent laparoscopic cholecystectomy there was felt to possibly be of further hernia more inferiorly P. Fatty fatty tissue was incised with hot scissors to allow for place for mesh to see. I utilized a a 17.8 x 22.9 piece of ventral light ST mesh was selected. I slightly shortened the length. I placed 4 corner sutures of 2-0 Prolene. The mesh was curled in place within the abdomen through the assigned catheter. 2 5 mm ports had been placed on the right abdomen and to family reports placed in the left midabdomen the mesh was unfurled. An 11 blade was used to make stab incisions and a grainy needle was used to parachuted the mesh up to the abdominal wall. I then removed the Roldan catheter and used uivtvn-ba-bmmvj sutures of 0 Nurolon to finish that fascial closure. Then you secure strap at the periphery at about 2 cm separations to completely secure the periphery of the mesh up against the anterior abdominal wall. I did utilize a total of 2 azul to secure the periphery of the mesh and the central portion the mesh to prevent seroma. Excellent coverage of the defect area was achieved. I then irrigated the mesh to allow for moisture. Major the greater omentum was down as far as I can get it to reach. I performed a tap block did this with Exparel 20 cc diluted with saline to 100 cc total. Block was performed under laparoscopic visualization. Finally trochars were removed the abdomen was allowed to deflate of CO2. Skin edges proximate interrupted 4 Monocryl subdermal stitches in an interrupted or running fashion. Steri-Strips and Telfa and OpSite dressings were applied. Sponge and instrument and needle counts were reported the surgeon for correct. Blood loss was minimal. The specimen includes the incarcerated hernia sac with fibrofatty contents. No drains. Blood loss minimal. The patient was taken to the recovery area in satisfactory condition. Angel Gregorio M.D., F.A.C.S. Type of Anesthesia:: General
[2018-05-14] MEDS: Aspirin E.C. 81 MG Tablet PO (16:18)
[2018-05-14] MEDS: HYDROcodone Bitartrate/Apap 5/325 Tablet PO ×2 (16:18→17:43)
[2018-05-14 16:26] LABS: Bedside Glucose 102 mg/dL (70-110)
[2018-05-14] MEDS: Lactated Ringers 1,000 ML 30 ML IV (18:15)
[2018-05-14 23:20] LABS: Bedside Glucose 114 mg/dL (70-110)
[2018-05-14] MEDS: Acetaminophen 325 MG Tablet 650 MG PO (23:22)
[2018-05-15 03:39] VITALS: BP 153/94; PULSE 81; RESP 18; TEMP 37.1; O2SAT 92
--- NOTE | 2018-05-15 05:39 | PCM.PN.SRG ---
Patient Problems: Active and Suspected Problems (Last Reviewed 04/29/18 @ 14:07 by Suyapa Mittal) Incarcerated ventral hernia (Acute) Subjective: Pt sleeping in chair. Comfortable at rest. Taking tylenol. No flatus - Physical Exam Lungs: Clear to auscultation, - - decreased excursion Abdomen: Soft, Bowel Sounds Not Present, Tender Vital Signs Temp Pulse Resp BP Pulse Ox 98.7 F 81 18 153/94 H 92 05/15/18 03:39 05/15/18 03:39 05/15/18 03:39 05/15/18 03:39 05/15/18 03:39 Oxygen Delivery Method Room Air Weight: 245 lb 9.519 oz Body Mass Index (BMI) 33.3 Finger Stick Blood Glucose 151 Intake and Output for Last 24 Hours 05/13/18 05/14/18 05/15/18 23:59 23:59 23:59 Intake Total 1860 / 1860 432 / 432 Output Total 925 / 925 240 / 240 Balance 935 / 935 192 / 192 POC Glucose 05/14/18 05/14/18 22:26 16:20 POC Glucose 114 H 102 Medical Necessity - Tobacco Use Smoking Status: Never smoker Assessment/Plan All Active Problems (Last Reviewed 04/29/18 @ 14:07 by Suyapa Mittal) Incarcerated ventral hernia (Acute) S/P repair of ventral hernia (Acute) S/P cholecystectomy (Acute) Chronic cholecystitis (Acute) Gallbladder polyp (Acute) Abnormal EKG (Acute) Tear of lateral meniscus of right knee (Acute) Effusion of right knee joint (Acute) Contusion of right knee (Acute) Bone fracture (Acute) Kidney stones (Acute) H/O removal of cyst (Resolved) H/O oral surgery (Resolved) Inguinal hernia (Acute) Osteoarthritis (Acute) Diabetes mellitus (Acute) Needs to continue to mobilize Awaiting BS and flatus
[2018-05-15] MEDS: Acetaminophen 325 MG Tablet 650 MG PO ×3 (06:20→22:05)
[2018-05-15] MEDS: Polyethylene Glycol 3350 17 GM PACKET PO (06:21)
[2018-05-15] MEDS: Enoxaparin 40 MG/0.4 ML Syringe SC (06:21)
[2018-05-15 07:10] LABS: Bedside Glucose 108 mg/dL (70-110)
[2018-05-15 10:09] VITALS: BP 122/82; PULSE 64; RESP 18; TEMP 36.9; O2SAT 98
[2018-05-15] MEDS: Aspirin E.C. 81 MG Tablet PO (10:11)
[2018-05-15] MEDS: Losartan Potassium 50 MG Tablet PO (10:11)
[2018-05-15 12:41] LABS: Bedside Glucose 141 mg/dL (70-110)
[2018-05-15 16:15] VITALS: BP 131/75; PULSE 64; RESP 16; TEMP 36.9; O2SAT 95
--- NOTE | 2018-05-15 16:22 | NURSING ---
Dr. Gregorio paged and updated with the following: BS hypo, abd tender, but still no flatus. Walking frequently. Pt educated that he must walk at least TID but the more the better and must be walking in halls. Pt just awakened from approx 2.5hr nap per pt. This nurse woke up to perform focused assessment, obtained VS, and get pt up to walk. Pt up to walk to bathroom and then walked in halls with family. Pt is not keen on clear liquid diet but is taking the clear liquids without nausea, vomiting.
[2018-05-15 17:06] LABS: Bedside Glucose 109 mg/dL (70-110)
[2018-05-15 21:45] VITALS: BP 149/93; PULSE 76; RESP 18; TEMP 36.5; O2SAT 95
[2018-05-15 22:00] VITALS: PULSE 76; RESP 18; O2SAT 95
[2018-05-15 22:21] LABS: Bedside Glucose 127 mg/dL (70-110)
[2018-05-16 03:45] VITALS: BP 129/78; PULSE 64; RESP 16; TEMP 37; O2SAT 95
[2018-05-16] MEDS: Lactated Ringers 1,000 ML 30 ML IV (04:00)
[2018-05-16 04:03] VITALS: RESP 16; O2SAT 95
[2018-05-16] MEDS: Enoxaparin 40 MG/0.4 ML Syringe SC (05:50)
--- NOTE | 2018-05-16 05:50 | PCM.PN.SRG ---
Patient Problems: Active and Suspected Problems (Last Reviewed 04/29/18 @ 14:07 by Suyapa Mittal) Incarcerated ventral hernia (Acute) Subjective: Sore with movement Passing flatus No nausea Tolerating liquids - Physical Exam General: Alert, Oriented x3, Cooperative, No apparent distress Lungs: Clear to auscultation Abdomen: Bowel Sounds Present, Soft, Tender Vital Signs Temp Pulse Resp BP Pulse Ox 98.6 F 64 16 129/78 H 95 05/16/18 03:45 05/16/18 03:45 05/16/18 04:03 05/16/18 03:45 05/16/18 04:03 Oxygen Delivery Method Room Air Weight: 245 lb 9.519 oz Body Mass Index (BMI) 33.3 Finger Stick Blood Glucose 151 Intake and Output for Last 24 Hours 05/14/18 05/15/18 05/16/18 23:59 23:59 23:59 Intake Total 1860 / 1860 1937 / 1937 546 / 546 Output Total 925 / 925 1390 / 1390 100 / 100 Balance 935 / 935 547 / 547 446 / 446 POC Glucose 05/15/18 05/15/18 05/15/18 22:11 16:52 12:32 POC Glucose 127 H 109 141 H 05/15/18 06:54 POC Glucose 108 Medical Necessity - Tobacco Use Smoking Status: Never smoker Assessment/Plan All Active Problems (Last Reviewed 04/29/18 @ 14:07 by Suyapa Mittal) Incarcerated ventral hernia (Acute) S/P repair of ventral hernia (Acute) S/P cholecystectomy (Acute) Chronic cholecystitis (Acute) Gallbladder polyp (Acute) Abnormal EKG (Acute) Tear of lateral meniscus of right knee (Acute) Effusion of right knee joint (Acute) Contusion of right knee (Acute) Bone fracture (Acute) Kidney stones (Acute) H/O removal of cyst (Resolved) H/O oral surgery (Resolved) Inguinal hernia (Acute) Osteoarthritis (Acute) Diabetes mellitus (Acute) Ready for discharge
[2018-05-16 06:45] LABS: Bedside Glucose 120 mg/dL (70-110)
[2018-05-16] MEDS: Aspirin E.C. 81 MG Tablet PO (10:36)
[2018-05-16] MEDS: Losartan Potassium 50 MG Tablet PO (10:36)
[2018-05-16] MEDS: Acetaminophen 325 MG Tablet 650 MG PO (10:47)
[2018-05-16 11:50] VITALS: BP 145/86; PULSE 77; RESP 18; TEMP 36.7; O2SAT 97
== END 2018-05-17 10:55 | disposition home or self-care (01) ==
LOC: MS3 05-17 10:55
PROVIDERS: Admitting Provider Surgery; Family Provider Family Medicine; PCP Family Medicine; Visit Provider Surgery
PROC: 0WQF4ZZ Repair Abdominal Wall, Percutaneous Endoscopic Approach (ICD-10-PCS; CPT 49653; principal; 2018-05-14 09:45)
DX: K43.6 Other and unspecified ventral hernia with obstruction, without gangrene (principal); E78.00 Pure hypercholesterolemia, unspecified; E11.9 Type 2 diabetes mellitus without complications; Z79.82 Long term (current) use of aspirin; Z79.899 Other long term (current) drug therapy; Z79.84 Long term (current) use of oral hypoglycemic drugs; I10 Essential (primary) hypertension; M19.90 Unspecified osteoarthritis, unspecified site
CPT/HCPCS: 00752; 49653; 82962; 88302; 96372; 99218; J7120; A4216; C1781; G0378; G0379; J3490

== ENCOUNTER → 2018-10-20 08:30 | Outpatient (CLI) | payer OTHER, SELFPAY ==
[2018-10-20 11:10] LABS: Microalbumin,Random Urine 31.7 mg/L (NO RANGE EST.); Microalbumin:Creatinine Ratio 11.1 mg/g CRE (<30 mg/g CRE)
--- OUTSIDE RECORDS SUMMARY | 2018-12-06 03:46 | XMS RPT_ITS ---
:1955 Author Organization OHIP Support Name Relationship Address Phone [employer] Unavailable [address] + [place] [address] PARI, COLE Unavailable [address] + [place] [address] [employer] Unavailable [address] + [place] [address] PARI, COLE Unavailable [address] + [place] [address] [employer] Unavailable [address] + [place] [address] PARI, COLE Unavailable [address] + [place] [address] [employer] Unavailable [address] + [place] [address] PAR[employer], COLE Unavailable [address] + [place] [address] [employer] Unavailable [address] + [place] [address] PARI, COLE Unavailable [address] + [place] [address] [employer] Unavailable [address] + [place] [address] PARI, COLE Unavailable [address] + [place] [address] [employer] Unavailable [address] + [place] [address] PARI, COLE Unavailable [address] + [place] [address] [employer] Unavailable [address] + [place] [address] PARI, COLE Unavailable [address] + [place] [address] [employer] Unavailable [address] + [place] [address] PAR[place], COLE Unavailable [address] [phone] [place] [address] [employer] Unavailable [address] + [place] [address] PARI, COLE Unavailable [address] [phone] [place] [address] [employer] Unavailable [address] + [place] [address] PAR[place], COLE Unavailable [address] [phone] [place] [address] [employer] Unavailable [address] + [place] [address] PARI, COLE Unavailable [address] [phone] [place] [address] [employer] Unavailable [address] + [place] [address] PARI, COLE Unavailable [address] [phone] [place] [address] [employer] Unavailable [address] + [place] [address] PAR[facility], COLE Unavailable [address] [phone] [place] [address] [employer] Unavailable [address] + [place] [address] PAR[facility], COLE Unavailable [address] [phone] [place] [address] [employer] Unavailable [address] + [place] [address] PAR[facility], COLE Unavailable [address] [phone] [place] [address] [employer] Unavailable [address] + [place] [address] PARI COLE Unavailable [address] [phone] [place] [address] [employer] Unavailable [address] + [place] [address] [employer] Unavailable [address] + [place] [address] [place], [place] Unavailable [address] [phone] [place] [address] [employer] Unavailable [address] + [place] [address] [place] Un[place] NA + [place], [place] Care Team Providers Name Role Phone Rommel Vergara Attending Unavailable [facility] Unavailable Angel Gregorio Attending Unavailable Marlon, Harry Chi Primary Care Unavailable MoodKofi steven Attending Unavailable Marlon, Harry Chi Referring Unavailable Marlon, Harry Chi Primary Care Unavailable Kofi Boykin Attending Unavailable Kofi Boykin Referring Unavailable Marlon, Harry Chi Primary Care Unavailable Angel Gregorio Attending Unavailable SuebuAngel benitez Referring Unavailable Marlon, Harry Chi Primary Care Unavailable Angel Gregorio Attending Unavailable Angel Gregorio Referring Unavailable Marlon, Harry Chi Primary Care Unavailable Angel Gregorio Consulting Unavailable Kofi Boykin Attending Unavailable Kofi Boykin Referring Unavailable Angel Gregorio Attending Unavailable Marlon, Harry Chi Referring Unavailable Marlon, Harry Chi Primary Care Unavailable Marlon, Harry Chi Attending Unavailable Marlon, Harry Chi Primary Care Unavailable Wil Pak Attending Unavailable Angel Gregorio Referring Unavailable Angel Gregorio Attending Unavailable Tita Reyes Attending Unavailable Marlon, Harry Chi Referring Unavailable Aneta Hogan PA-C Attending Unavailable Marlon, Harry Chi Referring Unavailable Marlon, Harry Chi Primary Care Unavailable Angel Gregorio Attending Unavailable Anegl Gregorio Referring Unavailable [facility] Primary [facility] Unavailable Angel Gregorio Attending Unavailable Angel Gregorio Referring Unavailable [facility] Unavailable Angel Gregorio Admitting Unavailable Angel Gregorio Attending Unavailable Cebul, Angel Referring Unavailable Rommel Vergara Primary Care Unavailable Joãol, Angel Consulting Unavailable PashaNoeOtter Attending Unavailable Jg, Angel Referring Unavailable Aneta Hogan PA-C Attending Unavailable Rommel Vergara Referring Unavailable Rommel Vergara Primary Care Unavailable Gonzalo Thayer Attending Unavailable PROBLEMS PROBLEMS DATE TYPE CONDITION / CODE ATTENDING STATUS SOURCE 05/17/2018 Unknown G89.18 - Other acute Cebul, Angel Active [facility] postprocedural pain / Community G89.18(ICD-10) Hospital Repository 05/21/2018 Unknown R94.31 - Abnormal Pasha, Otter Active [facility] electrocardiogram Community [ECG] [EKG] / Hospital R94.31(ICD-10) Repository 02/12/2018 Unknown I10 - Essential Marlon, Harry Chi Active [place] (primary) hypertension Community / I10(ICD-10) Hospital Repository 02/12/2018 Unknown E11.9 - Type 2 Marlon, Harry Chi Active [facility] diabetes mellitus Community without complications Hospital / E11.9(ICD-10) Repository 02/12/2018 Unknown E55.9 - Vitamin D Marlon, Harry Chi Active [facility] deficiency, Community unspecified / Hospital E55.9(ICD-10) Repository 02/04/2018 Unknown Z98.890 - Other Cebul, Angel Active [facility] specified Community postprocedural states Hospital / Z98.890(ICD-10) Repository 02/04/2018 Unknown Z87.19 - Personal Cebul, Angel Active [facility] history of other Community diseases of the Hospital digestive system / Repository Z87.19(ICD-10) 02/04/2018 Unknown K81.1 - Chronic Cebul, Angel Active [place] cholecystitis / Community K81.1(ICD-10) Hospital Repository 02/04/2018 Unknown Z90.49 - Acquired Cebul, Angel Active [facility] absence of other Community specified parts of Hospital digestive tract / Repository Z90.49(ICD-10) 03/05/2018 Unknown K81.2 - Acute Cebul, Angel Active [facility] cholecystitis with Community chronic cholecystitis Hospital / K81.2(ICD-10) Repository 03/05/2018 Unknown K43.9 - Ventral hernia Cebul, Angel Active [place] without obstruction or Community gangrene / Hospital K43.9(ICD-10) Repository 12/25/2017 Unknown Z01.818 - Encounter Angel Gregorio Active [facility] for other [facility] preprocedural Hospital examination / Repository Z01.818(ICD-10) PROCEDURES PROCEDURES No Procedure Records FoundRESULTS RESULTS MICROALB:CREAT Collected: 10/20/2018 Status: F Source: [place] RATIO,RANDOM UR 8:32 AM [facility] REPOSITORY TYPE CODE TESTS RESULT OUT OF RANGE REFERENCE UNITS LAB L501.1200 NO RANGE EST. mg/dL Normal UR CREAT 286.00 LAB L502.0500 NO RANGE EST. mg/L Normal 31.7 MICROALBUMIN ,UR LAB L502.0600 <30 mg/g CRE mg/g CRE Normal 11.1 MALB:CREAT Performed By: #### L502.0250 #### [facility] [address] [place], [address] HEMOGLOBIN A1C Collected: 10/20/2018 Status: F Source: [place] 8:32 AM [facility] REPOSITORY TYPE CODE TESTS RESULT OUT OF RANGE REFERENCE UNITS LAB L501.9985 4.2-6.3 % High HGB A1C 7.0 Performed By: #### L501.9985 #### [facility] [address] [place], [address] SURGERY VISIT REPORT Observed: 05/24/2018 Status: F Source: [place] 11:04 AM [facility] REPOSITORY [facility] [address] [place] [address] OFFICE VISIT Date of Service: 05/24/18 MR#: [id number] Acct: [id number] Name: MARY ALICE YAÑEZ Rep #: [id number] : 1955 Provider: Aneta Hogan PA-C Age/Sex: 63/M Location: [facility] Status: Signed Intake Intake Visit Reasons: Hernia SX 05/14 Chief Complaint: hernia repair x2 05/14 In Service Education Teacher Required: No Is patient in pain?: Yes (only soreness--improved c/t prior to surgery ) Allergies cortisone Allergy (Severe, Verified 04/29/18 14:07) Unknown Sulfa (Sulfonamide Antibiotics) Allergy (Mild, Verified 04/29/18 14:07) Unknown Medications aspirin 81 mg tablet,delayed release 81 mg PO QDAY 10/22/17 [History Confirmed 05/14/18] cholecalciferol (vitamin D3) 50,000 unit capsule 50,000 unit PO QWEEK 10/22/17 [History Confirmed 05/14/18] losartan 50 mg tablet 50 mg PO DAILY 10/22/17 [History Confirmed 05/14/18] metformin 500 mg tablet 500 mg PO DAILY 10/22/17 [History Confirmed 05/14/18] Lecithin 1,200 mg PO DAILY 11/12/17 [History Confirmed 05/14/18] Hydrocodone Bitart/Apap 5-325 [Avenel 5MG-325MG] 1 tab PO Q6H PRN PRN 3 Days #10 tab 05/14/18 [Rx] PFSH Medical History Abnormal EKG (Acute) Ventral hernia (Chronic) Lipoma (Chronic) Chronic cough (Chronic) Gallstones (Chronic) Abdominal pain (Chronic) DM II (diabetes mellitus, type II), controlled (Chronic) Right knee pain (Chronic) Tear of lateral meniscus of right knee (Acute) Effusion of right knee joint (Acute) Contusion of right knee (Acute) Arthritis (Chronic) Bone fracture (Acute) Hypertension (Chronic) Kidney stones (Acute) Surgical History S/P repair of ventral hernia (Acute) S/P cholecystectomy (Acute) H/O removal of cyst (Resolved) H/O oral surgery (Resolved) History of umbilical hernia repair (Acute 05/2018) Family History Mother CVA (cerebral vascular accident) Diabetes Arthritis Grandfather Heart disease Social History Smoking Status: Never smoker second hand exposure: No alcohol intake: never substance use type: does not use HPI HPI HPI: MARY ALICE YAÑEZ, is a 63 M I am following for an umbilical hernia dn ventral hernia. Dr. Gregorio performed a laparoscopic umbilical and ventral hernia repair with mesh on 05/14/18. Patient tolerated the procedure well. Patient notes minimal amount of left sided tenderness. He notes appetite is slowly returning. Patient notes loose stools with urgency since his gallbladder removal. Pathology demonstrated hernia sac. Exam Const General: cooperative, healthy appearing, comfortable, no acute distress GI Inspection: normal to inspection, incision (c/d/i. No erythema or infection noted) Palpation: soft, tender (minimal left side) Auscultation: normal bowel sounds Assessment AND Plan Problems 1. S/P repair of ventral hernia Z98.890; Z87.19 01/26/2018 Plan - Recommend no lifting greater than 20 pounds for 8 weeks total - RTW date given for 05/31 with restrictions until July - Follow-up as needed Coding Level of Care Code Global Post Op Diagnoses S/P repair of ventral hernia Z98.890; Z87.19 05/24/18 1104 <Electronically signed by Aneta Hogan PA-C> Date Aneta Hogan PA-C Cosigner Signature: Date (if applicable) CC: Rommel Vergara MD BEDSIDE GLUCOSE Collected: 05/16/2018 Status: F Source: [place] 6:32 AM [facility] REPOSITORY TYPE CODE TESTS RESULT OUT OF REFERENCE UNITS RANGE LAB L501.080 70-110 mg/dL High BEDSIDE GLU 120 Result Comment: MANAGEMENT OF PATIENT CARE PER NURSING PROTOCOL Performed By: #### L501.080 #### [facility] Point of Care [address] [place], [place] [address] BEDSIDE GLUCOSE Collected: 05/15/2018 Status: F Source: [place] 10:11 PM [facility] REPOSITORY TYPE CODE TESTS RESULT OUT OF REFERENCE UNITS RANGE LAB L501.080 70-110 mg/dL High BEDSIDE GLU 127 Result Comment: MANAGEMENT OF PATIENT CARE PER NURSING PROTOCOL Performed By: #### L501.080 #### [facility] Point of Care [address] [place] [address] BEDSIDE GLUCOSE Collected: 05/15/2018 Status: F Source: [place] 4:52 PM [facility] REPOSITORY TYPE CODE TESTS RESULT OUT OF RANGE REFERENCE UNITS LAB L501.080 70-110 mg/dL Normal BEDSIDE GLU 109 Result Comment: MANAGEMENT OF PATIENT CARE PER NURSING PROTOCOL Performed By: #### L501.080 #### [facility] Point of Care [address] [place] [address] BEDSIDE GLUCOSE Collected: 05/15/2018 Status: F Source: [place] 12:32 PM [facility] REPOSITORY TYPE CODE TESTS RESULT OUT OF REFERENCE UNITS RANGE LAB L501.080 70-110 mg/dL High BEDSIDE GLU 141 Result Comment: MANAGEMENT OF PATIENT CARE PER NURSING PROTOCOL Performed By: #### L501.080 #### [facility] Point of Care [address] [place] [address] BEDSIDE GLUCOSE Collected: 05/15/2018 Status: F Source: [place] 6:54 AM [facility] REPOSITORY TYPE CODE TESTS RESULT OUT OF RANGE REFERENCE UNITS LAB L501.080 70-110 mg/dL Normal BEDSIDE GLU 108 Result Comment: MANAGEMENT OF PATIENT CARE PER NURSING PROTOCOL Performed By: #### L501.080 #### [facility] Point of Care [address] [place] [address] DISCHARGE INSTRUCTION Observed: 05/15/2018 Status: F Source: [place] 5:41 AM [facility] Medical Records Department [address] [place] [address] Instructions for Home/Discharge Instructions 05/14/18 0948 MR#: [id number] Acct: [id number] Name: MARY ALICE YAÑEZ Rep #: [id number] : 1955 63 From: Angel Gregorio MD PCP: Rommel Vergara MD Status: [facility] Discharge Diet: Light diet - advance as tolerated - if you have questions about your diet instructions, please talk to you doctor. Discharge Activity: May Not Drive - for 1 week or while taking narcotic pain medicine. May shower in (days): 1 Lifting Restrictions: 10 pounds Call your doctor if your incision/area has: Continuous Slow Oozing, Sudden Increased Bleeding, Increased Pain/ Swelling, Increased Redness, Foul Smelling Discharge Call your doctor if you observe: Fever of 101 or Higher Suture Line Care: Avoid Pulling/Pushing, Avoid Pinching/Bending Additional Dressing/Incision Instructions:: Change or remove dressing in 4 days. Leave steri-strips in place for 1 week. Allergies/Adverse Reactions: Allergies cortisone Allergy (Severe, Verified 04/29/18 14:07) Unknown Sulfa (Sulfonamide Antibiotics) Allergy (Mild, Verified 04/29/18 14:07) Unknown Medications to take at Discharge aspirin 81 mg tablet,delayed release 81 mg PO QDAY 10/22/17 cholecalciferol (vitamin D3) 50,000 unit capsule 50,000 unit PO QWEEK 10/22/17 losartan 50 mg tablet 50 mg PO DAILY 10/22/17 metformin 500 mg tablet 500 mg PO DAILY 10/22/17 Lecithin 1,200 mg PO DAILY 11/12/17 Hydrocodone Bitart/Apap 5-325 [Avenel 5MG-325MG] 1 tablet PO Q6H PRN PRN 3 Days #10 tablet 05/14/18 The following prescriptions were given: Hydrocodone Bitart/Apap 5-325 [Avenel 5MG-325MG] 1 tablet PO Q6H PRN PRN 3 Days #10 tablet PRN Reason: Pain Primary Care Physician: Stanislav Vergara MD [Primary Care Provider] - Test Results: Test results from this visit will be discussed in further detail at your follow-up appointment, if applicable. Please Follow Up With: Angel Gregorio MD - [phone] When: Call to make an appointment to be seen in about 10 days. 05/15/18 0541 <Electronically signed by Angel Gregorio MD> Date Angel Gregorio MD CC: Rommel Vergara MD BEDSIDE GLUCOSE Collected: 05/14/2018 Status: F Source: [place] 10:26 PM [facility] REPOSITORY TYPE CODE TESTS RESULT OUT OF REFERENCE UNITS RANGE LAB L501.080 70-110 mg/dL High BEDSIDE GLU 114 Result Comment: MANAGEMENT OF PATIENT CARE PER NURSING PROTOCOL Performed By: #### L501.080 #### [facility] Point of Care [address] [place] [address] BEDSIDE GLUCOSE Collected: 05/14/2018 Status: F Source: [place] 4:20 PM [facility] REPOSITORY TYPE CODE TESTS RESULT OUT OF RANGE REFERENCE UNITS LAB L501.080 70-110 mg/dL Normal BEDSIDE GLU 102 Result Comment: MANAGEMENT OF PATIENT CARE PER NURSING PROTOCOL Performed By: #### L501.080 #### [facility] Point of Care [address] [place] [address] BEDSIDE GLUCOSE Collected: 05/14/2018 Status: F Source: [place] 12:12 PM [facility] REPOSITORY TYPE CODE TESTS RESULT OUT OF REFERENCE UNITS RANGE LAB L501.080 70-110 mg/dL High BEDSIDE GLU 155 Result Comment: MANAGEMENT OF PATIENT CARE PER NURSING PROTOCOL Performed By: #### L501.080 #### [facility] Point of Care [address] [place] [address] OPERATIVE REPORT Observed: 05/14/2018 Status: F Source: [place] 11:38 AM [facility] REPOSITORY [facility] Medical Records Department [address] [place] [address] Operative Report 05/14/18 1133 MR#: [id number] Acct: [id number] Name: MARY ALICE YAÑEZ Rep #: [id number] : 1955 63 From: Angel Gregorio MD PCP: Rommel Vergara MD Status: [facility] [place] Location: [place] [address] Problem List (1) Incarcerated ventral hernia Status: Acute Report of Operation Date of Procedure: 05/14/18 Pre-Operative Diagnosis: Incarcerated supraumbilical ventral hernia Post-Operative Diagnosis: Incarcerated supraumbilical ventral hernia Surgery/Procedure Performed:: Laparoscopic ventral herniorrhaphy with ventral light ST mesh reference #[id number] lot number [id number] expiry date 03/06/2019 Description of Surgical Findings:: Amount and informed consent was obtained. 63-year-old gent was taken out from. He was placed on the table. Underwent general ventricular-based anesthesia. The abdomen was sterilely prepped draped. Ioban draping was utilized as well. Patient received 2 g of Ancef intravenously. A transverse incision was made supraumbilically at site of the incarcerated hernia sharp and blunt dissection identified this very fibrofatty incarcerated sac with suggestion of bowel involvement was not able to completely easily freelist the tissue was very thick and so I elected to gain access to a 5 mm Visiport technology in the right upper quadrant. 0.5% Marcaine was used as local anesthetic throughout the procedure total 20 cc was used local was instilled and a 5 mm Visiport was used to gain access in the right upper quadrant and direct visualization. The abdomen was insufflated with CO2 to a pressure of 10 mmHg pressure. 5 minute trocar inserted no of any trocar injuries inspection revealed that there had been a loop of small bowel within that hernia but with the air pressure released itself. I then used electrocautery to transect a very thickened fibrofatty sac and contents. I partially approximated that wound with interrupted 0 Nurolon [id number] sutures. Placed in a Roldan catheter. There is evidence of the umbilical incision that it just been recently closed relating to the patient's recent laparoscopic cholecystectomy there was felt to possibly be of further hernia more inferiorly P. Fatty fatty tissue was incised with hot scissors to allow for place for mesh to see. I utilized a a 17.8 x 22.9 piece of ventral light ST mesh was selected. I slightly shortened the length. I placed 4 corner sutures of 2-0 Prolene. The mesh was curled in place within the abdomen through the assigned catheter. 2 5 mm ports had been placed on the right abdomen and to family reports placed in the left midabdomen the mesh was unfurled. An 11 blade was used to make stab incisions and a grainy needle was used to parachuted the mesh up to the abdominal wall. I then removed the Roldan catheter and used gekaqc-[id number] sutures of 0 Nurolon to finish that fascial closure. Then you secure strap at the periphery at about 2 cm separations to completely secure the periphery of the mesh up against the anterior abdominal wall. I did utilize a total of 2 azul to secure the periphery of the mesh and the central portion the mesh to prevent seroma. Excellent coverage of the defect area was achieved. I then irrigated the mesh to allow for moisture. Major the greater omentum was down as far as I can get it to reach. I performed a tap block did this with Exparel 20 cc diluted with saline to 100 cc total. Block was performed under laparoscopic visualization. Finally trochars were removed the abdomen was allowed to deflate of CO2. Skin edges proximate interrupted 4 Monocryl subdermal stitches in an interrupted or running fashion. Steri-Strips and Telfa and OpSite dressings were applied. Sponge and instrument and needle counts were reported the surgeon for correct. Blood loss was minimal. The specimen includes the incarcerated hernia sac with fibrofatty contents. No drains. Blood loss minimal. The patient was taken to the recovery area in satisfactory condition. Angel Gregorio M.D., F.A.C.S. Type of Anesthesia:: General 05/14/18 1138 <Electronically signed by Angel Gregorio MD> Date Angel Gregorio MD CC: Rommel Vergara MD; Angel Gregorio MD Signed HERNIA Observed: 05/14/2018 Status: F Source: [place] 10:05 AM [facility] REPOSITORY Patient: MARY ALICE YAÑEZ : 1955 (63/M) Acct Num: [id number] Phys: Jg HOLCOMB,Angel Unit Num: [id number] Loc: MS3 [id number] Specimen: [id number] Received: 05/14/18 - 1316 Spec Type: Hernia TISSUES TISSUES: HERNIA GROSS DESCRIPTION Received in fixative is one container labeled with the patient's name and designated hernia sac and contents. The specimen consists of an irregular fragment of pink-yellow fibrofatty tissue measuring 7 x 5 x 3.8 cm. Sections reveal yellow fatty cut surfaces with focal organizing hemorrhage. The organizing hemorrhage area measures 2 x 1 x 1 cm. Workers Compensation Claims Assistant sections are submitted in one cassette. / AM:moon 05/14/18 TC:5 CPT: 02699 HEADER OPERATION: Ventral and umbilical hernia repair PRE-OP DIAGNOSIS: Ventral and umbilical hernia without obstruction or gangrene TISSUE SUBMITTED: Hernia sac and contents MICROSCOPIC DESCRIPTION Slides are reviewed. MICROSCOPIC DIAGNOSIS Hernia sac and contents: A piece of fibroadipose tissue consistent with hernia sac with focal area of hemorrhage and reactive changes. SJ:moon 05/17/18 Signed Dexterjared Jimenez 05/17/18 <signature on file> Performed By: #### PHERN #### [facility] [address] [place], [address] BEDSIDE GLUCOSE Collected: 05/14/2018 Status: F Source: [place] 8:32 AM [facility] REPOSITORY TYPE CODE TESTS RESULT OUT OF REFERENCE UNITS RANGE LAB L501.080 70-110 mg/dL High BEDSIDE GLU 118 Result Comment: MANAGEMENT OF PATIENT CARE PER NURSING PROTOCOL Performed By: #### L501.080 #### [facility] Point of Care [address] [place] [address] 12 LEAD ELECTROCARDIOGRAM Observed: 05/10/2018 Status: F Source: [place] 3:07 PM [facility] REPOSITORY [facility] Cardiovascular Services [address] [place] [address] [place] [facility] 05/06/18 0735 MR#: [id number] Acct: [id number] Name: MARY ALICE YAÑEZ Rep #: [id number] : 1955 63 From: Wil Pak MD Attending Dr: Angel Gregorio MD Status: [facility] Ordering Dr: Angel Gregorio MD Date: 05/06/18 Location: [facility] Sex: M C Admitted: Test Reason : Blood Pressure : / mmHG Vent. Rate : 062 BPM Atrial Rate : 062 BPM P-R Int : 198 ms QRS Dur : 086 ms QT Int : 412 ms P-R-T Axes : 024 -17 -08 degrees QTc Int : 418 ms Normal sinus rhythm Inferior infarct , age undetermined Abnormal ECG Confirmed by WIL PAK MD ([id number]), newspaper editor managing JAYCEE HILL ([id number]) on 05/10/2018 3:06:49 PM Referred By: Angel Gregorio Confirmed By:WIL PAK MD 05/10/18 1506 Date Wil Pak MD CC: Rommel Vergara MD; Angel Gregorio MD Date Dictated: 05/06/18734 Date Transcribed: 05/06/18734 Audio Visual Manager: Signed CBC-COMPLETE BLOOD CNT Collected: 05/06/2018 Status: F Source: [place] NO DIFF 8:40 AM [facility] REPOSITORY TYPE CODE TESTS RESULT OUT OF RANGE REFERENCE UNITS LAB L100.1000 4.4-11.0 K/mm3 Normal WBC 4.6 LAB L100.1200 4.6-6.2 M/mm3 Normal RBC 5.04 LAB L100.1300 13.0-16.5 g/dl Normal HGB 15.4 LAB L100.1400 40-54 % Normal HCT 45.2 LAB L100.1500 80-94 fL Normal MCV 89.7 LAB L100.1600 27.0-32.0 pg Normal MCH 30.6 LAB L100.1700 32-36 g/gl Normal MCHC 34.1 LAB L100.1810 11.6-14.6 % Normal RDW CV 13.6 LAB L100.1820 35.1-43.9 fl High RDW SD 44.5 LAB L100.1900 150-450 K/mm3 Low PLT 148 LAB L100.2000 6.2-12.0 fl High MPV 12.1 Performed By: #### L100.0500 #### [facility] [place], [address] BASIC METABOLIC Collected: 05/06/2018 Status: F Source: [place] PROFILE (BMP) 8:40 AM [facility] REPOSITORY TYPE CODE TESTS RESULT OUT OF RANGE REFERENCE UNITS LAB L501.0100 74-106 mg/dL High GLU 122 Result Comment: Fasting Glucose result from 100 to 125 mg/dL suggests IMPAIRED HOMEOSTASIS per A.D.A. criteria. Please note revised GLUCOSE reference range effective 2017. LAB L501.1000 7-18 mg/dL Normal BUN 13 LAB L501.1100 0.70-1.30 mg/dL Normal CREAT,SERUM 0.94 Result Comment: The validity of the calculated GFR AND GFRAA in patients over 70 years has not been determined. Clinical correlation is essential. LAB L501.1110 >60 mL/min Normal EST GFR 86 Result Comment: Non- GFR Calc LAB L501.1115 >60 mL/min Normal EST GFR - AA 104 Result Comment: GFR Calc LAB L501.1255 ml/min Normal Estimated CRCL 87.14 LAB L501.1300 10-20 RATIO Normal BUN/CRE 13.9 LAB L501.2200 8.5-10 mg/dL Low .1 CA 8.4 LAB L501.5300 136-14 mmol/L Normal 5 NA 144 LAB L501.5600 3.5-5. mmol/L Normal 1 K 4.1 LAB L501.5900 98-107 mmol/L High CL 109 LAB L501.6100 21.0-3 mmol/L Normal 2.0 CO2 29.0 LAB L501.6200 5-15 Normal GAP 6 Performed By: #### L500.2500 #### [facility] [address] [place], [address] HEMOGLOBIN A1C Collected: 05/06/2018 Status: F Source: [place] 8:40 AM [facility] REPOSITORY TYPE CODE TESTS RESULT OUT OF RANGE REFERENCE UNITS LAB L501.9985 4.2-6.3 % High HGB A1C 6.5 Performed By: #### L501.9985 #### [facility] [address] [place], [address] SURGERY VISIT REPORT Observed: 04/29/2018 Status: F Source: [place] 3:40 PM [facility] REPOSITORY [facility] 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 Is patient in pain?: Yes (mid abdomen) Allergies cortisone Allergy (Severe, Verified 04/29/18 14:07) Unknown Sulfa (Sulfonamide Antibiotics) Allergy (Mild, Verified 04/29/18 14:07) Unknown Medications aspirin 81 mg tablet,delayed release 81 mg PO QDAY 10/22/17 [History Confirmed 04/29/18] cholecalciferol (vitamin D3) 50,000 unit capsule 50,000 unit PO QWEEK 10/22/17 [History Confirmed 04/29/18] losartan 50 mg tablet 50 mg PO DAILY 10/22/17 [History Confirmed 04/29/18] metformin 500 mg tablet 500 mg PO DAILY 10/22/17 [History Confirmed 04/29/18] Lecithin 1,200 mg PO DAILY 11/12/17 [History Confirmed 04/29/18] beclomethasone dipropionate 80 mcg/actuation nasal HFA inhaler 2 inh INTRANASAL QDAY PRN g 12/03/17 [History Confirmed 04/29/18] coenzyme Q10 200 mg capsule 200 mg PO QDAY 12/03/17 [History Confirmed 04/29/18] Guaifenesin [Mucinex] 600 mg PO Q12H PRN PRN 01/20/18 [History Confirmed 04/29/18] Hydrocodone Bitart/Apap 5-325 [Avenel 5MG-325MG] 1 tab PO Q6H PRN PRN 3 Days #10 tab 01/26/18 [Rx Confirmed 04/29/18] PFSH Medical History Abnormal EKG (Acute) Ventral hernia (Chronic) Lipoma (Chronic) Chronic cough (Chronic) Gallstones (Chronic) Abdominal pain (Chronic) DM II (diabetes mellitus, type II), controlled (Chronic) Right knee pain (Chronic) Tear of lateral meniscus of right knee (Acute) Effusion of right knee joint (Acute) Contusion of right knee (Acute) Arthritis (Chronic) Bone fracture (Acute) Hypertension (Chronic) Kidney stones (Acute) Surgical History S/P repair of ventral hernia (Acute) S/P cholecystectomy (Acute) H/O removal of cyst (Resolved) H/O oral surgery (Resolved) Family History Mother CVA (cerebral vascular accident) Diabetes Arthritis Grandfather Heart disease Social History Smoking Status: Never smoker second hand exposure: No alcohol intake: never substance use type: does not use HPI HPI HPI: MARY ALICE YAÑEZ, is a 63 M who presents for an update history and physical for hernia repair. Patient recently had a laparoscopic cholecystectomy in January [address] Gregorio. Patient did well with the procedure. At that time it was noted the patient had an umbilical and ventral hernia. It was recommended the patient follow-up 3 months after to have his surgery scheduled. Patient denies recent hospitalizations or illnesses. He notes increased discomfort in the midline of the abdomen at the umbilicus. He notes bowel habits have been working well. His appetite is back to normal. Patient also notes a pocket/mass on the left side of the abdomen. He denies pain with this area. He noted several years ago he developed a cough and fractured a rib on the left lower rib cage. He notes this pocket/lump may cause some sharp brief discomfort and shortness of breath. ROS General General: Yes fatigue; no weight change, appetite, colon cancer, breast cancer or weakness HEENT HEENT: No difficulty swallowing, eye injury, eye surgery, swollen glands or hoarseness Endo Endocrine: Yes diabetes mellitus; no thyroid disease, thyroid cancer, Hair loss, heat intolerance or cold intolerance Skin Skin: No rash or changing moles Breast Breast: No left breast lump, right breast lump, breast pain, abnormal mammogram, abnormal US, breast enlargement or nipple discharge Musc Musculoskeletal: Yes arthritis; no back problems, rheumatoid arthritis, gout or joint pain Cardio Cardiovascular: Yes high blood pressure; no pacemaker, heart disease, atrial fibrillation, heart attack, heart stent, palpitations, shortness of breat with exertion, chest pain or murmur Psych Psychiatric: No depression, anxiety or hearing voices Resp Respiratory: No shortness of breath, No sleep apnea, Yes cough, No COPD, No asthma, No emphysema, No wheezing Gastro Gastrointestinal: No abdominal pain, No nausea or vomiting, No diarrhea, No constipation, No blood in stool, Yes acid reflux, No hemorrhoids, No ulcers, Yes gallbladder problem, No black,tarry stools Irineo Hematologic: No blood thinners, No blood disorders, No bleeding, No anemia, No blood clots Neuro Neurologic: No weakness Exam Const General: cooperative, healthy appearing, comfortable, no acute distress [facility] Head: normal to inspection Eyes General: appearance normal, both eyes and all related structures Neck Neck mass: No Chest Breast Palpation: No nipple discharge Resp Effort AND Inspection: normal respiratory effort Auscultation: clear to auscultation bilaterally Cardio Rate: regular rate Rhythm: regular rhythm Heart Sounds: no murmurs GI Inspection: large pannus, obesity, incision (c/d/i. Nicely healed lap juan incisions) Palpation: soft, hernia (umbilical and periumbilical region) Auscultation: normal bowel sounds Other: Left upper abdomen- tented palpable region. Non-tender. Skin General: no rashes or lesions noted Neuro General: no focal motor deficits, CN's II-XI intact bilaterally Extrem General: normal to inspection Psych Appearance: grossly normal Affect: normal affect Assessment AND Plan Problems 1. Ventral hernia without obstruction or gangrene K43.9 2. Umbilical hernia without obstruction and without gangrene K42.[address] Gregorio has also evaluated this patient. CT scan of the ab/pel from 09/11/[address] Gregorio which noted the left sided lump is a focal eventration of the peritoneal fat between splayed lower left ribs. No jeanmarie herniation is noted. Dr. Gregorio recommended no surgical intervention on the left sided mass, however he would like to evaluate this area laparoscopically. Dr. Gregorio will plan to perform a laparoscopic umbilical and periumbilical hernia repair. Procedure details, risk and benefits have been explained and reviewed with the patient. Patient and his have had the opportunity to ask and have questions answered. Patient verbally understands and agrees with the plan. Coding Level of Care Code No Charge Diagnoses Ventral hernia without obstruction or gangrene K43.9 Obstruction and gangrene presence: without obstruction or gangrene Umbilical hernia without obstruction and without gangrene K42.9 Obstruction and gangrene presence: without obstruction or gangrene 04/29/18 1540 <Electronically signed by Aneta Hogan PA-C> Date Aneta Samira JOHNSON Cosigner Signature: Date (if applicable) CC: Harry Mason MD CBC W/DIFF, AUTOMATED Collected: 02/12/2018 Status: F Source: [place] 9:05 AM [facility] REPOSITORY TYPE CODE TESTS RESULT OUT OF RANGE REFERENCE UNITS LAB L100.1000 4.4-11.0 K/mm3 Normal WBC 7.5 LAB L100.1200 4.6-6.2 M/mm3 Normal RBC 5.76 LAB L100.1300 13.0-16.5 g/dl High HGB 17.1 LAB L100.1400 40-54 % Normal HCT 51.1 LAB L100.1500 80-94 fL Normal MCV 88.7 LAB L100.1600 27.0-32.0 pg Normal MCH 29.7 LAB L100.1700 32-36 g/gl Normal MCHC 33.5 LAB L100.1810 11.6-14.6 % Normal RDW CV 13.8 LAB L100.1820 35.1-43.9 fl High RDW SD 44.8 LAB L100.1900 150-450 K/mm3 Normal PLT 155 LAB L100.2000 6.2-12.0 fl High MPV 12.4 LAB L100.2100 47-70 % Normal NEUT% 68.9 LAB L100.2200 19-41 % Normal LY% 20.2 LAB L100.2300 0-10 % Normal MONO% 9.1 LAB L100.2400 0-5 % Normal EO% 1.6 LAB L100.2500 0-1 % Normal BASO% 0.1 LAB L100.2550 0.0-0.9 % Normal IM GRAN % 0.100 Result Comment: IG% - Immature Granulocytes (promyelocytes, myelocytes and metamyelocytes) > 1% indicates that a LEFT SHIFT is Present. LAB L100.2620 2.0-7.7 X10 3/uL Normal Absolute Neut 5.2 LAB L100.2720 0.83-4.51 X10 3/ul Normal Absolute Lymph 1.52 Performed By: #### L100.0100 #### [facility] [place], [address] COMPREHENSIVE METABOLIC Collected: 02/12/2018 Status: F Source: [place] [facility] 9:05 AM [facility] REPOSITORY TYPE CODE TESTS RESULT OUT OF RANGE REFERENCE UNITS LAB L501.0100 74-106 mg/dL High GLU 138 Result Comment: Fasting Glucose result greater than or equal to 126 mg/dL suggests DIABETES MELLITUS per A.D.A. criteria. Please note revised GLUCOSE reference range effective 2017. LAB L501.1000 7-18 mg/dL Normal BUN 17 LAB L501.1100 0.70-1.30 mg/dL Normal CREAT,SERUM 0.93 Result Comment: The validity of the calculated GFR AND GFRAA in patients over 70 years has not been determined. Clinical correlation is essential. LAB L501.1110 >60 mL/min Normal EST GFR 87 Result Comment: Non- GFR Calc LAB L501.1115 >60 mL/min Normal EST GFR - AA 105 Result Comment: GFR Calc LAB L501.1300 10-20 RATIO Normal BUN/CRE 18.3 LAB L501.1500 6.4-8.2 g/dL T Normal PROT 7.6 LAB L501.1800 3.2-5.0 g/dL Normal ALB 3.7 LAB L501.1950 2.2-4.2 g/dL Normal GLOB 3.9 LAB L501.2000 0.9-2.4 RATIO Normal A/G 0.9 LAB L501.2200 8.5-10.1 mg/dL CA Normal 8.5 LAB L501.4100 15-37 U/L Normal AST 21 LAB L501.4305 45-117 U/L Normal ALK P 76 LAB L501.4405 16-61 U/L Normal ALT 39 Result Comment: Please note revised ALT reference range effective 2017. LAB L501.4600 0.20-1.00 mg/dL Normal T BILI 0.80 LAB L501.5300 136-145 mmol/L Normal NA 140 LAB L501.5600 3.5-5.1 mmol/L Normal K 3.9 LAB L501.5900 98-107 mmol/L Normal CL 104 LAB L501.6100 21.0-32.0 mmol/L Normal CO2 27.0 LAB L501.6200 5-15 Normal GAP 9 Performed By: #### L500.4050, L501.9520 #### [facility] [address] [place], [address] THYROID STIM HORMONE Collected: 02/12/2018 Status: F Source: [place] (TSH) 9:05 AM [facility] REPOSITORY TYPE CODE TESTS RESULT OUT OF RANGE REFERENCE UNITS LAB L501.9520 0.358-3.74 uIU/mL Normal TSH 2.35 Performed By: #### L500.4050, L501.9520 #### [facility] [address] [place], [address] VITAMIN D,25 HYDROXY Collected: 02/12/2018 Status: F Source: [place] 9:05 AM [facility] REPOSITORY TYPE CODE TESTS RESULT OUT OF RANGE REFERENCE UNITS LAB L506.1000 29.95-100.01 ng/mL Normal Vitamin D 70.3 25-OH Result Comment: Vitamin D 25(OH) Status Range Deficiency <20 ng/mL (50nmol/L) Insuffciency 20 - 30 ng/mL (50 - 75 nmol/L) Sufficiency 30 - 100 ng/mL (75 - 250 nmol/L) Toxicity >100 ng/mL (>250 nmol/L) Performed By: #### L506.1000 #### [facility] [address] 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 Is patient in pain?: No Allergies cortisone Allergy (Severe, Verified 02/04/18 13:02) Unknown Sulfa (Sulfonamide Antibiotics) Allergy (Mild, Verified 02/04/18 13:02) Unknown Medications aspirin 81 mg tablet,delayed release 81 mg PO QDAY 10/22/17 [History Confirmed 02/04/18] cholecalciferol (vitamin D3) 50,000 unit capsule 50,000 unit PO QWEEK 10/22/17 [History Confirmed 02/04/18] losartan 50 mg tablet 50 mg PO DAILY 10/22/17 [History Confirmed 02/04/18] metformin 500 mg tablet 500 mg PO DAILY 10/22/17 [History Confirmed 02/04/18] Lecithin 1,200 mg PO DAILY 11/12/17 [History Confirmed 02/04/18] beclomethasone dipropionate 80 mcg/actuation nasal HFA inhaler 2 inh INTRANASAL QDAY PRN g 12/03/17 [History Confirmed 02/04/18] coenzyme Q10 200 mg capsule 200 mg PO QDAY 12/03/17 [History Confirmed 02/04/18] Guaifenesin [Mucinex] 600 mg PO Q12H PRN PRN 01/20/18 [History Confirmed 02/04/18] Hydrocodone Bitart/Apap 5-325 [Avenel 5MG-325MG] 1 tab PO Q6H PRN PRN 3 Days #10 tab 01/26/18 [Rx Confirmed 02/04/18] PFSH Medical History Abnormal EKG (Acute) Ventral hernia (Chronic) Lipoma (Chronic) Chronic cough (Chronic) Gallstones (Chronic) Abdominal pain (Chronic) DM II (diabetes mellitus, type II), controlled (Chronic) Right knee pain (Chronic) Tear of lateral meniscus of right knee (Acute) Effusion of right knee joint (Acute) Contusion of right knee (Acute) Arthritis (Chronic) Bone fracture (Acute) Hypertension (Chronic) Kidney stones (Acute) Surgical History S/P repair of ventral hernia (Acute) S/P cholecystectomy (Acute) H/O removal of cyst (Resolved) H/O oral surgery (Resolved) Family History Mother CVA (cerebral vascular accident) Diabetes Arthritis Grandfather Heart disease Social History Smoking Status: Never smoker second hand exposure: No alcohol intake: never substance use type: does not use HPI HPI HPI: MARY ALICE YAÑEZ, is a 63 M who presents to the office today for surgical follow-up. On January 26, 2018. I performed a incarcerated umbilical herniorrhaphy as well as a laparoscopic cholecystectomy. The gallbladder was suspicious for polyps. He has 2 hernias. One was at the umbilicus and one is superior to the umbilicus. The final pathology and the hernia sac and contents showed fat necrosis fibrosis and mild chronic inflammation. The gallbladder did not show polyps on final analysis but rather cholesterolosis and chronic cholecystitis. A small portion of the liver showed microvesicular and macrovesicular steatosis consistent with the patient's body habitus. He notes some tape burn injury to the right of the umbilicus. Exam GI Other: Laparoscopic incisions are clean dry healing well. The circumareolar incision at the inferior portion of the umbilicus is healing well. No signs of infection. No seroma. There is a tape burn wound in the right lower quadrant of the abdomen. Dry eschar. No erythema. No drainage. Assessment AND Plan 1. S/P repair of ventral hernia Z98.890; Z87.19 Plan At this point the patient appears to be making good progress. We discuss pathology results. The patient cells easy boy recliners. He will return to work on February 16, 2000 18/2 days for 1 week and then he may resume full duty subsequent to that. He may remove his Steri-Strips with soapy warm water. He may topically treat his tape burn wound to the right mid abdomen. There are no current signs of infection. He still has an additional ventral hernia that is just superior to the umbilicus. I have offered him a future laparoscopic repair. I would anticipate hopefully laparoscopically entering and then been able to get into a retroperitoneal plane so as to be able to support both the umbilical repair and the supraumbilical repair with mesh. He has had an opportunity to ask and have questions answered. I anticipate seeing him back to the office in approximately 3-4 months to re-review regarding that situation. I was not initially planning on repairing the umbilical hernia at the time of his gallbladder but recognized at the time of surgery at that the patient's umbilical hernia had progressed to the point of incarceration. Cc: Dr. Marlon Gregorio M.D., F.A.C.S. 2. Chronic cholecystitis K81.1 3. S/P cholecystectomy Z90.49 Coding Level of Care Code Global Post Op Diagnoses S/P repair of ventral hernia Z98.890; Z87.19 Chronic cholecystitis K81.1 S/P cholecystectomy Z90.49 02/04/18 1330 <Electronically signed by Angel Gregorio MD> Date Angel Gregorio MD Cosigner Signature: Date (if applicable) CC: Harry Mason MD DISCHARGE INSTRUCTION Observed: 01/26/2018 Status: F Source: [place] 6:21 PM [facility] REPOSITORY [facility] Medical Records Department [address] [place] [address] Instructions for Home/Discharge Instructions 01/26/18 0652 MR#: [id number] Acct: [id number] Name: MARY ALICE YAÑEZ Rep #: [id number] : 1955 63 From: Angel Gregorio MD PCP: Harry Mason MD, Chi Status[place] [facility] Dis[place] Diet: Light diet - advance as tolerated - if you have questions about your diet instructions, please talk to you doctor. Discharge Activity: May Not Drive - for 1 week or while taking narcotic pain medicine. May shower in (days): 1 Lifting Restrictions: 10 pounds Call your doctor if your incision/area has: Continuous Slow Oozing, Sudden Increased Bleeding, Increased Pain/ Swelling, Increased Redness, Foul Smelling Discharge Call your doctor if you observe: Fever of 101 or Higher Suture Line Care: Avoid Pulling/Pushing, Avoid Pinching/Bending Additional Dressing/Incision Instructions:: Change or remove dressing in 4 days. Leave steri-strips in place for 1 week. Allergies/Adverse Reactions: Allergies cortisone Allergy (Severe, Verified 01/20/18 10:08) Unknown Sulfa (Sulfonamide Antibiotics) Allergy (Mild, Verified 01/20/18 10:08) Unknown Medications to take at Discharge aspirin 81 mg tablet,delayed release 81 mg PO QDAY 10/22/17 cholecalciferol (vitamin D3) 50,000 unit capsule 50,000 unit PO QWEEK 10/22/17 losartan 50 mg tablet 50 mg PO DAILY 10/22/17 metformin 500 mg tablet 500 mg PO DAILY 10/22/17 Lecithin 1,200 mg PO DAILY 11/12/17 beclomethasone dipropionate 80 mcg/actuation nasal HFA inhaler 2 inh INTRANASAL QDAY PRN g 12/03/17 coenzyme Q10 200 mg capsule 200 mg PO QDAY 12/03/17 Guaifenesin [Mucinex] 600 mg PO Q12H PRN PRN 01/20/18 Primary Care Physician: Harry Mason Chi, MD [Primary Care Provider] - Please Follow Up With: Angel Gregorio MD - [phone] When: Call to make an appointment to be seen in about 10 days. 01/26/18 1821 <Electronically signed by Angel Gregorio MD> Date Angel Gregorio MD CC: Harry Mason MD OPERATIVE REPORT Observed: 01/26/2018 Status: F Source: [place] 6:21 PM [facility] REPOSITORY [facility] Medical Records Department [address] [place] [address] [place] [address] Operative Report 01/26/18 0837 MR#: [id number] Acct: [id number] Name: MARY ALICE YAÑEZ Rep #: [id number] : 1955 63 From: Angel Gregorio MD PCP: Harry Mason MD, Chi Status: [facility] Location[place] [facility] [place] Problem List (1) Chronic cholecystitis Status: Acute (2) Gallbladder polyp Status: Acute Report of Operation Date of Procedure: 01/26/18 Pre-Operative Diagnosis: Chronic cholecystitis, gallbladder polyps,Umbilical and ventral hernias Post-Operative Diagnosis: Chronic cholecystitis, gallbladder polyps, incarceratedUmbilical hernia Surgery/Procedure Performed:: Laparoscopic cholecystectomy with cholangiograms. Incarcerated umbilical herniorrhaphy Description of Surgical Findings:: Timeout and informed consent was obtained. 63-year-old gent was taken the operative placement table underwent general ventricular-based anesthesia. Ancef 2 g given intravenous preoperatively. The abdomen sterilely prepped draped. It became apparent that since his previous appointment in October 2017 he has had bronchitis with vigorous coughing. What previously was a simple umbilical hernia now demonstrates clinical evidence of tight incarceration. Although I had previously planned not to address the hernia at this time I felt that there was no other option. A curvilinear infraumbilical incision was created sharp dissection carried down to Herr tissue tight incarceration and a very tight sac was encountered. I dissected down to the neck were I incised the sac. There was no bowel involvement. Hemostasis obtained with 0 Vicryl ligatures and electrocautery. The sac and contents were released and then submitted. This is consistent with incarcerated likely partially necrotic preperitoneal fat. As on catheter was inserted. The abdomen was insufflated with CO2. There is a separate hernia ventral hernia that is superior to the umbilical hernia. Fortunately currently there are no contents within that. Five-minute trochars are placed in the epigastrium and right upper quadrant. The gallbladder was distracted. There was a significant amount of fibrofatty tissue at the infundibular area. This had to be carefully bluntly dissected free. The critical view was achieved with the cystic duct and cystic artery identified. A Hem-o-cara clip was placed on the cystic duct incision in the cystic duct cholangiogram cath was inserted through a 14-gauge Angiocath and fluoroscopically controlled claims grams were obtained demonstrating normal ductal anatomy and free flow into the small bowel. The client Mitchell catheter was removed and 2 Hem-o-cara clips were placed on the cystic duct prior to transecting it. Cystic artery was clipped twice proximally prior to transecting it. The gallbladder was tediously dissected free from the liver bed using electrocautery. Complete hemostasis was intact. To further assure hemostasis a piece of fibular was placed in the liver bed portal area. The right upper quadrant was irrigated and aspirated free of excess fluid. The gallbladder was placed in retrieval bag and exited at the umbilicus. The remaining trochars removed under visualization. The fascia at the umbilicus was approximated with simple sutures of 0 Nurolon in a transverse fashion. Skin edges proximate interrupted 4 Monocryl subdermal stitches. Steri-Strips Telfa and OpSite dressings applied. Sponge instrument and needle counts were reported to the surgeon to be correct. Blood loss was minimal. Specimens include the gallbladder and the incarcerated umbilical hernia sac and contents. Drains none. Blood loss minimal. Angel Gregorio M.D., F.A.C.S. Type of Anesthesia:: General Anesthesiologist: Luis Barry 01/26/18 1821 <Electronically signed by nAgel Gregorio MD> Date Angel Gregorio MD CC: Angel Gregorio MD; Harry Mason MD Signed BEDSIDE GLUCOSE Collected: 01/26/2018 Status: F Source: [place] 9:35 AM [facility] REPOSITORY TYPE CODE TESTS RESULT OUT OF REFERENCE UNITS RANGE LAB L501.080 70-110 mg/dL High BEDSIDE GLU 149 Result Comment: MANAGEMENT OF PATIENT CARE PER NURSING PROTOCOL Performed By: #### L501.080 #### [facility] Point of Care [address] [place] [address] HISTORY AND PHYSICAL Observed: 01/26/2018 Status: F Source: [place] EXAM 6:10 AM [facility] REPOSITORY [facility] Medical Records Department [address] [place] [address] History and Physical 01/26/18 0604 MR#: [id number] Acct: [id number] Name: MARY ALICE YAÑEZ Rep #: [id number] : 1955 63 From: Angel Gregorio MD PCP: Harry Mason MD, Chi Status: [place] [facility] [place] Location: [place] [address] Problem List (1) Chronic cholecystitis Status: Acute (2) Gallbladder polyp Status: Acute History of Present Illness Date of Admission: 01/26/18 The patient is a 63 year old M who was evaluated with a gallbladder ultrasound October 08, 2017. There was sludge in the gallbladder. 2 small polyps noted the common bile duct was normal. Patient's had a previous rib fracture. Patient has a midline supraumbilical ventral hernia and a additional separate umbilical hernia. He has been having problems with right upper quadrant pain. Postprandial discomfort. 3 weeks ago he had bronchitis was placed on antibiotics and is improved. He has improved from his rib fractures. He is presenting now for planned laparoscopic cholecystectomy. Subsequent to that then he would like to plan a laparoscopic ventral herniorrhaphy of his 2 hernias. Past Medical History Past Medical History (Chronic Problems): Chronic Problems (Last Reviewed 12/03/17 @ 15:15 by Maryellen Calix) Cough (Chronic) Normal previous PFT Allergic rhinitis (Chronic) HTN (hypertension) (Chronic) Allergies cortisone Allergy (Severe, Verified 01/20/18 10:08) Unknown Sulfa (Sulfonamide Antibiotics) Allergy (Mild, Verified 01/20/18 10:08) Unknown Home Medications: Ambulatory Orders Medication Instructions Recorded aspirin 81 mg tablet,delayed 81 mg PO QDAY 10/22/17 release cholecalciferol (vitamin D3) 50,000 unit PO QWEEK 10/22/17 Smoking Status: Never smoker Review of Systems Constitutional: Denies: Anorexia Eyes: Denies: Blurred vision HEENT: Denies: Difficulty Hearing Cardiovascular: Denies: Chest Pain Respiratory: Reports: Cough Gastrointestinal: Reports: Abdominal Pain Genitourinary: Denies: Dysuria Musculoskeletal: Denies: Arm Pain Skin: Denies: Dryness Neurological: Denies: Balance problems Psychiatric: Denies: Anxiety Endocrine: Denies: Change in Body Habitus Hematologic/ Lymphatic: Denies: Adenopathy VTE Information - Inpt Only VTE Present on Admission: No Patient Problems: Active and Suspected Problems (Last Reviewed 12/03/17 @ 15:15 by Maryellen Calix) Chronic cholecystitis (Acute) Gallbladder polyp (Acute) - Physical Exam General: Alert, Oriented x3, Cooperative, No apparent distress HEENT: Atraumatic Oral: Moist Mucosa Neck: Supple Lungs: Clear to auscultation Cardiovascular: Regular rate, Regular Rhythm Abdomen: Bowel Sounds Present, Soft, - - Overweight, ventral hernias noted at the umbilicus and superiorly Extremities: No clubbing Skin: No rashes Lymphatic: No Cervical, Supraclavicular, or Inguinal Adenopathy Neurological: Cranial nerves II-XII grossly intact Vital Signs Temp Pulse Resp BP Pulse Ox 98.6 F 69 18 139/86 H 96 01/20/18 10:12 01/20/18 10:12 01/20/18 10:12 01/20/18 10:12 01/20/18 10:12 Oxygen Delivery Method Room Air Weight: 246 lb 4.101 oz Body Mass Index (BMI) 32.5 Assessment/Plan Active and Suspected Problems (Last Reviewed 12/03/17 @ 15:15 by Maryellen Calix) Chronic cholecystitis (Acute) Gallbladder polyp (Acute) I plan to proceed with a laparoscopic cholecystectomy remove the gallbladder and anticipated polyps. I plan to do this via a infraumbilical incision to avoid complications with the umbilical hernia. He is aware of the technique, benefits, risks, alternatives. In the future that I plan a laparoscopic ventral incisional herniorrhaphy of the umbilical hernia and supraumbilical hernia. There is definitive reason and means of removing the gallbladder definitive thing having pathology prior to performing a ventral hernia repair. The patient has had an opportunity to ask and have questions answered. He desires to proceed as noted. He states that his cough and pulmonary situation is improved since October. Angel Gregorio M.D., F.A.C.S. 01/26/18 0610 <Electronically signed by Angel Gregorio MD> Date Angel Gregorio MD Cosign Signature: Date (if applicable) CC: Angel Gregorio MD; Harry Mason MD Signed BEDSIDE GLUCOSE Collected: 01/26/2018 Status: F Source: [place] 5:45 AM [facility] REPOSITORY TYPE CODE TESTS RESULT OUT OF REFERENCE UNITS RANGE LAB L501.080 70-110 mg/dL High BEDSIDE GLU 122 Result Comment: MANAGEMENT OF PATIENT CARE PER NURSING PROTOCOL Performed By: #### L501.080 #### [place] [facility] Point of Care [address] [place] [address] CHOLANGIOGRAM/ O Observed: 01/26/2018 Status: F Source: [place] R,INITIAL 12:08 AM [facility] REPOSITORY [facility] Imaging Services [address] [place] [address] Cholangiogram/ O R,Initial MR#: [id number] Acct: [id number] Name: MARY ALICE YAÑEZ Rep #: [id number] : 1955 M 63 From: Jerel Dotson MD PCP: Harry Mason MD, Chi Status: [place] [facility] [place] Study: Cholangiogram/ O R,Initial Date of Exam: 01/26/18 Exam# [id number] Ordering Dr: Angel Gregorio MD STUDY: INTRAOPERATIVE CHOLANGIOGRAM. REASON FOR EXAM: Male, 63 years old. Laparoscopic cholecystectomy. FLUOROSCOPY TIME (if supplied): (24 seconds) minutes/seconds TECHNIQUE: An intraoperative cholangiogram was performed by the surgeon. Imaging was submitted. COMPARISON: None. FINDINGS: The common bile duct is not dilated. No intraluminal filling defect is seen. There is free flow of contrast into the duodenum. RAD/Cholangiogram/ O R,Initial IMPRESSION: Unremarkable examination. Electronically Signed: Jerel Dotson MD at 11:05 EDT Tel [phone], Service support , CC: Angel Gregorio MD; Harry Mason MD Audio Visual Manager: Signed HERNIA Observed: 01/26/2018 Status: F Source: [place] 12:00 AM [facility] REPOSITORY Patient: MARY ALICE YAÑEZ : 1955 (63/M) Acct Num: [id number] Phys: Angel Gregorio MD Unit Num: [id number] [place] [facility] [place] Specimen: [id number] Received: 03/20/18 - 1121 Spec Type: Hernia TISSUES TISSUES: A. HERNIA B. Gallbladder, NOS GROSS DESCRIPTION A - Received in fixative is one container labeled with the patient's name and designated hernia sac and contents. The specimen consists of a sac-like fragment of baeza soft tissue measuring 7 x 4 x 0.8 cm. Sections reveal yellow- baeza cut surfaces with focal chalky appearance. Workers Compensation Claims Assistant sections are submitted in one cassette. B - Received is one container labeled with the patient's name and designated gallbladder. The specimen consists of a gallbladder measuring 10 x 4.5 x 4.2 cm. The external surface is smooth and glistening. Focally, it is granular, hemorrhagic and contains cautery artifact. The lumen of the gallbladder contains greenish-yellow bile and no stones. The mucosa is bile-stained and without any mass lesions. The gallbladder wall averages 0.2 cm in thickness and displays chalky, yellow discoloration. Workers Compensation Claims Assistant sections of the gallbladder and the cystic duct are submitted in one cassette. / AM:moon 01/26/18 TC:3 CPT: 32224, 01716 HEADER OPERATION: Laparoscopic cholecystectomy with IOC; ventral hernia repair at umbilicus PRE-OP DIAGNOSIS: Chronic cholecystitis, gallbladder polyp, ventral hernia at umbilicus TISSUE SUBMITTED: A Hernia sac and contents, B - Gallbladder MICROSCOPIC DESCRIPTION Slides are reviewed. MICROSCOPIC DIAGNOSIS A. Hernia sac and contents, herniorrhaphy: Consistent with hernia sac with lobulated fat contents showing fat necrosis, fibrosis and mild chronic inflammation. B. Gallbladder, cholecystectomy: Cholesterolosis and chronic cholecystitis. Minute fragment of hepatic parenchyma with mild microvesicular and macrovesicular steatosis. AM:moon 01/27/18 Signed Raúl [facility] 01/27/18 <signature on file> Performed By: #### PHERN #### [facility] [address] [place], [address] 12 LEAD ELECTROCARDIOGRAM Observed: 01/22/2018 Status: F Source: [place] 1:36 PM [facility] REPOSITORY [facility] Cardiovascular Services [address] [place] [address] EKG - SD 01/20/18933 MR#: [id number] Acct: [id number] Name: MARY ALICE YAÑEZ Rep #: [id number] : 1955 63 From: Wil Pak MD Attending Dr: Angel Gregorio MD Status: PRE SDC Ordering Dr: Angel Gregorio MD Date: 01/20/18 [place] [facility] Sex: M C Admitted: Test Reason : Blood Pressure : / mmHG Vent. Rate : 067 BPM Atrial Rate : 067 BPM P-R Int : 190 ms QRS Dur : 092 ms QT Int : 410 ms P-R-T Axes : 010 -19 -08 degrees QTc Int : 433 ms Normal sinus rhythm Inferior infarct , age undetermined Abnormal ECG Confirmed by PASHA HOLCOMB, WIL ([id number]), newspaper editor managing JAYCEE HILL ([id number]) on 01/22/2018 1:36:09 PM Referred By: Angel Gregorio Confirmed By:WIL PAK MD 01/22/18 1336 Date Wil Pak MD CC: Angel Gregorio MD; Harry Mason MD Date Dictated: 01/20/18933 Date Transcribed: 01/20/18933 Audio Visual Manager: Signed CBC-COMPLETE BLOOD CNT Collected: 01/20/2018 Status: F Source: [place] NO DIFF 10:51 AM [facility] REPOSITORY TYPE CODE TESTS RESULT OUT OF RANGE REFERENCE UNITS LAB L100.1000 4.4-11.0 K/mm3 Normal WBC 6.6 LAB L100.1200 4.6-6.2 M/mm3 Normal RBC 5.31 LAB L100.1300 13.0-16.5 g/dl Normal HGB 15.9 LAB L100.1400 40-54 % Normal HCT 48.1 LAB L100.1500 80-94 fL Normal MCV 90.6 LAB L100.1600 27.0-32.0 pg Normal MCH 29.9 LAB L100.1700 32-36 g/gl Normal MCHC 33.1 LAB L100.1810 11.6-14.6 % Normal RDW CV 13.5 LAB L100.1820 35.1-43.9 fl High RDW SD 44.0 LAB L100.1900 150-450 K/mm3 Low PLT 149 LAB L100.2000 6.2-12.0 fl High MPV 12.1 Performed By: #### L100.0500 #### [facility] [address] [place], [place], [address] BASIC METABOLIC Collected: 01/20/2018 Status: F Source: [place] PROFILE (BMP) 10:51 AM [facility] REPOSITORY TYPE CODE TESTS RESULT OUT OF RANGE REFERENCE UNITS LAB L501.0100 74-106 mg/dL High GLU 114 Result Comment: Fasting Glucose result from 100 to 125 mg/dL suggests IMPAIRED HOMEOSTASIS per A.D.A. criteria. Please note revised GLUCOSE reference range effective 2017. LAB L501.1000 7-18 mg/dL Normal BUN 13 LAB L501.1100 0.70-1.30 mg/dL Normal CREAT,SERUM 0.85 Result Comment: The validity of the calculated GFR AND GFRAA in patients over 70 years has not been determined. Clinical correlation is essential. LAB L501.1110 >60 mL/min Normal EST GFR 97 Result Comment: Non- GFR Calc LAB L501.1115 >60 mL/min Normal EST GFR - AA 117 Result Comment: GFR Calc LAB L501.1255 ml/min Normal Estimated CRCL 99.22 LAB L501.1300 10-20 RATIO Normal BUN/CRE 15.3 LAB L501.2200 8.5-10 mg/dL Low .1 CA 8.4 LAB L501.5300 136-14 mmol/L Normal 5 NA 143 LAB L501.5600 3.5-5. mmol/L Normal 1 K 3.9 LAB L501.5900 98-107 mmol/L Normal CL 107 LAB L501.6100 21.0-3 mmol/L Normal 2.0 CO2 30.0 LAB L501.6200 5-15 Normal GAP 6 Performed By: #### L500.2500 #### [facility] [address] [facility] [place], [address] HEMOGLOBIN A1C Collected: 01/20/2018 Status: F Source: [place] 10:51 AM [facility] REPOSITORY TYPE CODE TESTS RESULT OUT OF RANGE REFERENCE UNITS LAB L501.9985 4.2-6.3 % High HGB A1C 6.4 Performed By: #### L501.9985 #### [facility] [address] [place], [address] CHEST PA AND LATERAL Observed: 01/20/2018 Status: F Source: [place] 10:31 AM [facility] REPOSITORY [facility] Imaging Services [address] [place] [address] Chest PA and Lateral MR#: [id number] Acct: [id number] Name: MARY ALICE YAEÑZ Rep #: [id number] : 1955 M 63 From: Jerel Dotson MD PCP: Marlon HOLCOMB,[facility] Status: PRE [facility] Study: Chest PA and Lateral Date of Exam: 01/20/18 Exam# [id number] Ordering Dr: Angel Gregorio MD STUDY: X-RAY CHEST REASON FOR EXAM: Male, 63 years old. Preoperative evaluation. History of bronchitis. TECHNIQUE: PA and lateral views of the chest. COMPARISON: None. FINDINGS: Mild elevation of the right hemidiaphragm. Mild increased linear markings at the left lung base suggestive of atelectasis and/or scarring. Normal size heart. Normal mediastinum and georges. Normal visualized pulmonary arteries. There is atherosclerotic tortuosity of the aortic arch and descending thoracic aorta. There are diffuse degenerative changes of the visualized thoracic spine. Multiple healed left rib fractures. There is no demonstrated abnormality of the visualized soft tissue structures of the upper abdomen. RAD/Chest PA and Lateral IMPRESSION: Mild degree of increased markings at the left lung base suggestive of underlying atelectasis and/or scarring. Electronically Signed: Jerel Dotosn MD at 11:34 EDT Tel [phone], Service support , CC: Angel Gregorio MD; Harry Mason MD Audio Visual Manager: Signed ECHO, COMPLETE W/ Observed: 12/22/2017 Status: F Source: [place] CONTRAST 2:31 PM [facility] REPOSITORY [facility] Cardiovascular Services [address] [place] [address] Echo Complete W/ Contrast 12/22/17 0840 MR#: [id number] Acct: [id number] Name: MARY ALICE YAÑEZ Rep #: [id number] : 1955 62 From: Kofi Boykin MD Attending Dr: Kofi Boykin MD Status: REG CLI Ordering Dr: Kofi Boykin MD Date: 12/22/17 Location: [facility] Sex: M C Admitted: Reason For Study: murmur Procedure This was a 2D Doppler, Color Flow transthoracic echocardiogram. The exam was of fair technical quality due to body habitus. Exam performed in department. Left Ventricle Normal LV size. Left ventricular systolic function is normal. The estimated ejection fraction is 60 %. Transmitral doppler flow suggestive of impaired relaxation of left ventricle. No regional wall motion abnormalities noted. Right Ventricle Normal RV size. Normal systolic function. Atria The left atrium is mildly enlarged. Normal right atrium. No doppler evidence for ASD. Mitral Valve There is no mitral annular calcification. Normal mitral valve. Trivial mitral valve insufficiency. Tricuspid Valve Normal tricuspid valve. Trivial tricuspid valve insufficiency. Right ventricular systolic pressure estimated to be 33 mmHg. Aortic Valve Trisinus/trileaflet aortic valve. Normal aortic valve. Pulmonic Valve The pulmonic valve is not well visualized. Trivial pulmonic valve insufficiency. Great Vessels Borderline enlarged aortic root. Pericardium/Pleural No pericardial effusion. Medication Diluted definity 4.0ml given slow IV push to enhance endocardial definition. MMode/2D Measurements AND Calculations LVIDd: 4.7 cm IVSd: 1.4 cm Ao root diam: 3.8 cm LVIDs: 3.1 cm LVPWd: 1.2 cm LA dimension: 3.9 cm RVDd: 3.0 cm FS: 33.5 % LAV(MOD-bp): 82.0 ml LA A4 area: 24.3 cm2 RA A4 area: 15.7 cm2 LAV(MOD-bp) Indexed: 35.8 ml/m2 LAV(MOD-sp2): 70.6 ml LAV(MOD-sp4): 79.5 ml Time Measurements MV dec time: 0.26 sec Doppler Measurements AND Calculations MV E max krunal: 51.4 cm/sec Lat Peak E' Krunal: 4.1 cm/sec Med Peak E' Krunal: 5.4 cm/sec MV A max krunal: 77.6 cm/sec E/E' lat: 12.7 E/E' med: 9.5 MV E/A: 0.66 Ao V2 max: 126.1 cm/sec LV V1 max: 87.8 cm/sec PA V2 max: 87.2 cm/sec Ao max P.4 mmHg LV V1 max P.1 mmHg TR max krunal: 272.6 cm/sec TR max P.7 mmHg Interpretation Summary Left ventricular systolic function is normal. The estimated ejection fraction is 60 %. The left atrium is mildly enlarged. Trivial mitral valve insufficiency. Trivial tricuspid valve insufficiency. Trivial pulmonic valve insufficiency. Borderline enlarged aortic root. Right ventricular systolic pressure estimated to be 33 mmHg. Transmitral doppler flow suggestive of impaired relaxation of left ventricle Ordering Physician: Kofi Boykin Referring Physician: Harry Mason Chi Performed By: Delphine Allen RDCS, RVT 12/22/17 1430 Date Kofi Boykin MD CC: Kofi Boykin MD; Harry Mason MD Date Dictated: 12/22/17 0840 Date Transcribed: 12/22/17 143 Audio Visual Manager: Signed STRESS REPORT Observed: 12/22/2017 Status: F Source: [place] 1:58 PM [facility] REPOSITORY [facility] Cardiovascular Services [address] [place] [address] MR#: [id number] Acct: [id number] Name: MARY ALICE YAÑEZ Rep #: [id number] : 1955 62 From: Kofi Boykin MD Primary Care: Marlon HOLCOMB,Harry Arrieta Status: REG CLI Ordering Dr: Sex: M C Stress Test Report Date: 12/22/2017 Procedure: Exercise tolerance test/imaging study Indications: Abnormal ECG; preoperative cardiovascular evaluation Consent: Per the patient Procedure: The patient underwent exercise on a Jose David protocol for 6 minutes and 30 seconds completing stage II and 30 seconds of stage III achieving a peak heart rate of 144 bpm (91% predicted maximal heart rate) with a peak blood pressure 186/90 mmHg and a peak MET capacity of approximately 7 MET's. The baseline ECG demonstrated normal sinus rhythm. The peak exercise ECG demonstrated no obvious ECG changes. There was a rare PVC/ventricular couplet during exercise and a rare PVC during recovery. The functional capacity was considered average. There was no report of chest discomfort during exercise or recovery. The examination was discontinued secondary to fatigue. Impression: 1. Technically adequate (percent predicted maximal heart rate greater than 85%) exercise tolerance test 2. Peak exercise ECG with no obvious ECG changes 3. Rare PVCs/ventricular couplet during exercise and a rare PVC during recovery 4. Nuclear images pending Myocardial perfusion imaging study: Technique: The patient was injected with 14.7 mCi of technetium 99m Cardiolite and subsequently rest SPECT Cardiolite nuclear imaging was obtained in the horizontal long, vertical long, and short axis views. The patient underwent exercise on a Jose David protocol for 6 minutes and 30 seconds completing stage II and 30 seconds of stage III achieving a peak heart rate of 144 bpm (91% predicted maximal heart rate) with a peak blood pressure 186/90 mmHg and a peak MET capacity of approximately 7 MET's the patient was injected with 44.4 mCi of technetium 99m Cardiolite and subsequently stress SPECT currently nuclear imaging was obtained in the horizontal long, vertical long, and short axis views. A gated Cardiolite study at peak stress was obtained. Interpretation: Rest and stress SPECT currently nuclear imaging status post realignment, normalization, and attenuation correction, demonstrates the appearance of relative uniform tracer uptake and myocardial perfusion appearing within normal limits. There is end-systolic thickening and brightening. The gated Cardiolite study demonstrates myocardial thickening and end were wall motion. The reported LVEF is 62%. Impression: 1. Rest and stress SPECT currently nuclear imaging demonstrates the appearance of relative uniform tracer uptake and myocardial perfusion appearing within normal limits. 2. The gated Cardiolite study demonstrates an LVEF of 62%. This note was generated with [employer] Songs[employer] software. It may contain incorrect words, spelling, and punctuation that were not noted in checking the note before signing. 12/22/17 8523 <Electronically signed by Kofi Boykin MD> Date Kofi Boykin MD CC: Kofi Boykin MD; Harry Mason MD Date Dictated: 12/22/17 1350 Date Transcribed: 12/22/171349 Audio Visual Manager: PM Signed CARDIOLOGY VISIT Observed: 12/03/2017 Status: F Source: [place] REPORT 5:12 PM [facility] REPOSITORY [facility] [address] [place] [address] OFFICE VISIT Date of Service: 12/03/17 MR#: [id number] Acct: [id number] Name: MARY ALICE YAÑEZ Rep #: [id number] : 1955 Provider: Kofi Boykin MD Age/Sex: 62/M [place] [facility] [place] Status: Signed HPI ABN. EKG/ REF. WSO: Details: MARY ALICE YAÑEZ, is a 62 M who presents to the office today for for outpatient cardiovascular consultation/preoperative evaluation based on an abnormal ECG. He states he is in need of an upcoming cholecystectomy. On a preoperative ECG he was found to have normal sinus rhythm with an inferior CO pattern of indeterminate age. To the best of his knowledge he has no cardiovascular history. 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 He does not get chest discomfort with activity. He does not note any significant change in his respiratory status. He states at the end of the day he can be tired and fatigued but he attributes that to being active all day and walking multiple miles all day as part of his job. He has not had any near syncope or syncope. He states he has not had any previous cardiovascular testing. His ECG was repeated today. He still was noted to have sinus rhythm with a leftward axis and an inferior CO pattern of indeterminate age. Intake Vital Signs12/03/17 Height 6 ft 12/03/17 Weight: 248 lb 9 oz 12/03/17 Body Mass Index (BMI) 33.7 12/03/17 Blood Pressure 142/80 Intake Visit Reasons: ABN. EKG/ REF. WSO Allergies cortisone Allergy (Severe, Verified 12/03/17 15:11) Unknown Sulfa (Sulfonamide Antibiotics) Allergy (Mild, Verified 12/03/17 15:11) Unknown Medications aspirin 81 mg tablet,delayed release 81 mg PO QDAY 10/22/17 [History Confirmed 12/03/17] cholecalciferol (vitamin D3) 50,000 unit capsule 50,000 unit PO QWEEK 10/22/17 [History Confirmed 12/03/17] losartan 50 mg tablet 50 mg PO QHS 10/22/17 [History Confirmed 12/03/17] metformin 500 mg tablet 500 mg PO DAILY 10/22/17 [History Confirmed 12/03/17] Lecithin 1,200 mg PO DAILY 11/12/17 [History Confirmed 12/03/17] beclomethasone dipropionate 80 mcg/actuation nasal HFA inhaler 2 inh INTRANASAL QDAY PRN g 12/03/17 [History] coenzyme Q10 200 mg capsule 200 mg PO QDAY 12/03/17 [History Confirmed 12/03/17] Nurse's Note: Patient in for cardiac clearance. Went to [facility] for upcoming cholecystectomy and was noted with abnormal EKG. [facility] Medical History Abnormal EKG (Acute) Bone fracture (Acute) Contusion of right knee (Acute) Effusion of right knee joint (Acute) Kidney stones (Acute) Tear of lateral meniscus of right knee (Acute) Abdominal pain (Chronic) Arthritis (Chronic) Chronic cough (Chronic) DM II (diabetes mellitus, type II), controlled (Chronic) Gallstones (Chronic) Hypertension (Chronic) Lipoma (Chronic) Right knee pain (Chronic) Ventral hernia (Chronic) Surgical History H/O oral surgery (Resolved) H/O removal of cyst (Resolved) Family History Mother CVA (cerebral vascular accident) Diabetes Arthritis Grandfather Heart disease Social History Smoking Status: Never smoker second hand exposure: No alcohol intake: never substance use type: does not use ROS Const Const: Negative for fatigue, weakness, weight gain, weight loss, frequent falls or excessive sweating Eyes Eyes: Negative for change in vision, blurry vision or transient loss of vision ENT ENT: Negative for dizziness, Negative for balance problems Cardio Chest Pain: No Palpitations: Positive for No Edema: None Muscle aches with walking: None Resp Respiratory: Negative for SOB with activity or SOB at rest Additional Details: Patient reports chronic cough went to see Dr. Montgomery who suggested patient stop lisinopril for a week. Patient states that cough resolved. Patient restarted lisinopril and hasnt started with the chronic cough. GI GI: Negative vomiting or vomiting blood/hematemesis : Negative for hematuria Musc Musc: Negative for balance problems, muscle aches/ myalgia, muscle weakness or joint pain Skin Skin: Negative non-healing lesions or rash Neuro Neuro: Negative for weakness, Negative for blurry vision, Negative for dizziness, Negative for lightheadedness, Negative for frequent falls, Negative for orthostatic symptoms Irineo Hematologic/Lymphatic: Negative for easy bleeding Endo Endo: Negative for fatigue or excessive sweating Psych Psych: Negative for anxiety or depression Allergy Allergy/Immunology: Negative for hives, Negative for rash Cardiology Exam Const Appearance: cooperative, healthy appearing, comfortable, no acute distress, well developed and well groomed Nutritional Appearance: average body habitus and overweight Orientation: alert, awake and oriented x3 Head Head: normal to inspection, normocephalic and atraumatic Ears: hearing grossly normal bilaterally Nose: external nose normal Face and Sinus: face symmetric Mouth: oral mucosae normal Teeth and gingiva: dentition normal Eyes General: appearance normal, both eyes and all related structures Eyelids: eyelids normal Conjunctivae: conjunctivae normal Pupils: PERRL EOM: EOM intact bilaterally Neck Neck: normal visual inspection and full ROM Carotids: normal carotid upstroke Chest Chest inspection: normal inspection of the chest and symmetric chest movement Auscultation: Bilateral: Clear to Auscultation Cardio Palpation: normal PMI Rate: regular rate Rhythm: regular rhythm Heart sounds: S1 normal and S2 normal Murmur: Grade 2/6, soft, mid systolic and LLSB GI GI: normal to inspection, soft, no hepatosplenomegaly and bowel sounds present Neuro General: alert, awake and oriented x3 Skin Skin: no rashes or lesions noted Extremities Pulses: Normal: Right Femoral Pulse, Left Femoral Pulse, Right Radial Pulse, Left Radial Pulse Lower Extremity Edema: None: Bilateral Psych Psychological: normal affect Assessment AND Plan 1. Abnormal electrocardiogram R94.31 Plan At the present time he does have an abnormal electrocardiogram. It is unclear whether this represents a normal variant for him versus a true previous cardiovascular event. He will undergo further evaluation. This will include a transthoracic echocardiogram to evaluate his left ventricular wall thickness, wall motion, and overall function. He will also include, based on concerns of his fatigue in addition to the electrocardiogram, an exercise tolerance test/imaging study to evaluate for ongoing myocardial ischemia that may be a contributing factor that warrants further evaluation and care. Orders Orders: 2. Heart murmur R01.1 Plan He does have a cardiac murmur. He is unaware of this. This will be further addressed with the echocardiographic study. 3. Essential hypertension I10 Plan He does have a history of hypertension. He will continue medical management. Orders Orders: 4. Pre-operative cardiovascular examination Z01.810 Plan With respect to his preoperative evaluation, if his noninvasive studies are unremarkable, then he should be able to proceed with further noncardiac evaluation and care as deemed appropriate. He would be monitoring his heart rate rhythm and blood pressure during and following the procedure. An attempt should be made to avoid significant fluctuations in his underlying rate and/or rhythm as well as his volume status. Hopefully if his studies are unremarkable then he would be considered at a low risk for adverse cardiovascular events from noncardiac surgery. The above was discussed with the patient and he was agreeable to this approach. Plan Detail Other Orders Orders: Additional Comments Thank you for allowing me to participate in the care of your patient. Please don't hesitate to call if any issues arise. This note was generated using a voice recognition system and there may be incorrect words, spelling or punctuation that were not noted when reviewing the office note prior to saving. Follow Up 6 Months (PF) Coding Level of Care Code Off vis,new,level 4 Diagnoses Abnormal electrocardiogram R94.31 Heart murmur R01.1 Essential hypertension I10 Hypertension type: essential hypertension Pre-operative cardiovascular examination Z01.810 12/03/17 1712 <Electronically signed by Kofi Boykin MD> Date Kofi Boykin MD Cosigner Signature: Date (if applicable) CC: Angel Gregorio MD; Harry Mason MD 12 LEAD EKG PERFORMED Observed: 12/03/2017 Status: F Source: [place] BY ADELAIDE 3:10 PM [facility] REPOSITORY [facility] [address] [place] [address] 12 Lead EKG performed by ADELAIDE 12/03/17 1509 MR#: [id number] Acct: [id number] Name: MARY ALICE YAÑEZ Rep #: [id number] : 1955 62 From: Kofi Boykin MD Attending Dr: Kofi Boykin MD Status: DEP AMB Ordering Dr: Kofi Boykin MD Date: 12/03/17 Location: [facility] Sex: M C Admitted: BMS/12 Lead EKG performed by [facility] ECG Report Interpretation Sinus Rhythm Leftward axixInferior infarct - age undeterminedABNORMAL Electronically signed on 12/03/2017 at 17:21 by Kofi Boykin 12/03/17 1724 Date Kofi Boykin MD CC: Harry Mason MD Date Dictated: 12/03/17 1509 Date Transcribed: 12/03/17 150 Audio Visual Manager: PM Signed ALLERGIES ALLERGIES DATE TYPE / CODE NAME / CODE REACTION SEVERITY SOURCE 04/29/2018 Drug Sulfa Unknown CO [facility] Allergy/4160 (Sulfonamide Hospital 55747(SNOMED Antibiotics)/ Repository CT) [id number](RX NORM) 04/29/2018 Drug cortisone/F00 Unknown SV [facility] Allergy/4160 2667619(RXNOR Hospital 73488(SNOMED M) Repository CT) ENCOUNTERS ENCOUNTERS ADMIT/DISCHARGE ACCOUNT ADMITTING ENCOUNTER LOCATION SOURCE NUMBER CLASS 10/20/2018 [id number] Ambulatory [place] 2 [facility] ing:MFPLAB Repository 06/01/2018 [id number] Ambulatory BMSBuilding:B [place] 1 [facility] Repository 05/24/2018/ [id number] Ambulatory BMSBuilding:B [place] 8 8 MS.[facility] Repository 05/14/2018/ [id number] Jg Angel Ambulatory [place] Reubens 8 3 [facility] ing:JL4Aqix: Repository [id number]: 1 05/14/2018 [id number] Ambulatory BMSBuilding:B [place] 4 MS.CF.[facility] Repository 05/06/2018 [id number] Ambulatory [place] 1 [facility] ing[facility]PAT Repository 05/06/2018 [id number] Ambulatory BMSBuilding:W [place] 8 [facility] Repository 04/29/2018/ [id number] Ambulatory BMSBuilding:B [place] 8 4 MS.[facility] Repository 04/22/2018 [id number] Ambulatory BMSBuilding:B [place] 1 MS.[facility] Repository 02/12/2018 [id number] Ambulatory [place] 3 [facility] ing:POLAB3 Repository 02/04/2018/ [id number] Ambulatory BMSBuilding:B [place] 8 1 MS.[facility] Repository 01/26/2018/ [id number] Ambulatory [place] 8 7 [facility] ing:SDCRoom: Repository AC06 01/26/2018 [id number] Ambulatory BMSBuilding:B [place] 0 MS.CF.[facility] Repository 01/26/2018 [id number] Ambulatory BMSBuilding:B [place] 4 MS.CF.[facility] Repository 01/20/2018 [id number] Ambulatory BMSBuilding:W [place] 3 [facility] Repository 12/22/2017 [id number] Ambulatory [place] Reub[place] 2 [facility] ing:CVS Repository 12/22/2017 [id number] Ambulatory BMSBuilding:W [place] 7 [facility] Repository 12/08/2017 [id number] Ambulatory [place] 2 [facility] ing:SDC Repository 12/03/2017/ [id number] Ambulatory BMSBuilding:B [place] 8 6 MS.[facility] Repository PAYERS PAYERS ENCOUNTER GUARANTOR PAYER SUBSCRIBER SOURCE 10/20/2018 MARY ALICE Najera Primary MARY ALICE Najera Re[place] [id number] [facility] [id number] [address]Nue: Number: Repository [id number] (HP) Date:6906-50-36BO [address] [address]DP: 10/20/2018 Secondary NOT GIVENUNK [place] Insurance:SELF PAY [facility] Number: Effective Repository Date:2018-10-20 06/01/2018 MARY ALICE C Primary MARY ALICE C [place] [id number] Insurance:MEDICAL WESTFALLDOB: [facility] [id number] [facility] [address]Dew: Number: Repository [id number] (HP) Date:5205-78-73TE [place] [address]WP: 06/01/2018 Secondary NOT GIVENUNK [place] Insurance:SELF PAY [facility] Number: Effective Repository Date:2017-12-03 05/24/2018 MARY ALICE C Primary MARY ALICE C [place] [id number] Insurance:MEDICAL WESTFALLDOB: [facility] [id number] [facility] [address]Uja: Number: Repository [id number] (HP) Date:6025-64-43KM [place] [address]WP: 05/24/2018 Secondary NOT GIVENUNK [place] Insurance:SELF PAY [facility] Number: Effective Repository Date:2018-05-24 05/14/2018 MARY ALICE C Primary MARY ALICE C [place] [id number] Insurance:MEDICAL WESTFALLDOB: [facility] [id number] [id number]: Number: Repository [id number] (HP) Date:5984-43-54WI [address] [address]AE: 05/14/2018 Secondary NOT GIVENUNK [place] Insurance:SELF PAY [facility] Number: Effective Repository Date:2018-05-13 05/14/2018 MARY ALICE C Primary MARY ALIEC C [place] [id number] Insurance:MEDICAL WESTFALLDOB: [facility] [id number] [facility] [address]Blz: Number: Repository [id number] (HP) Date:9134-70-01CZ [address] [address]EM: 05/14/2018 Secondary NOT GIVENUNK [place] Insurance:SELF PAY [facility] Number: Effective Repository Date:2018-05-14 05/06/2018 MARY ALICE C Primary MARY ALICE C [place] [id number] Insurance:MEDICAL WESTFALLDOB: [facility] [id number] [facility] [address]Nvv: Number: Repository [id number] (HP) Date:3375-96-68EW [place] [phone]: 05/06/2018 Secondary NOT GIVENUNK [place] Insurance:SELF PAY [facility] Number: Effective Repository Date:2018-04-30 05/06/2018 MARY ALICE C Primary MARY ALICE C [place] [id number] Insurance:MEDICAL WESTFALLDOB: [facility] [id number] [facility] [address]Rrb: Number: Repository [id number] (HP) Date:7500-21-25OP [place] [id number]: 05/06/2018 Secondary NOT GIVENUNK [place] Insurance:SELF PAY [facility] Number: Effective Repository Date:2018-05-06 04/29/2018 MARY ALICE C Primary MARY ALICE C [place] [id number] Insurance:MEDICAL WESTFALLDOB: [facility] [id number] [facility] [address]Dni: Number: Repository [id number] (HP) Date:6386-91-19CM [place] [phone]: 04/29/2018 Secondary NOT GIVENUNK [place] Insurance:SELF PAY [facility] Number: Effective Repository Date:2018-04-29 04/22/2018 MARY ALICE C Primary MARY ALICE C [place] [id number] Insurance:MEDICAL WESTFALLDOB: [facility] [id number] [address]Lqx: Number: Repository [phone] [id number] -7 (HP) Date:1004-14-48NK [address] [address]JI: 04/22/2018 Secondary NOT GIVENUNK [place] Insurance:SELF PAY [facility] Number: Effective Repository Date:2017-10-27 02/12/2018 MARY ALICE C Primary MARY ALICE C [place] [id number] Insurance:MEDICAL WESTFALLDOB: [facility] [id number] [facility] [address]Nkg: Number: Repository [phone] [id number] -7 (HP) Date:5990-65-10QO [address] [address]WI: 02/12/2018 Secondary NOT GIVENUNK [place] Insurance:SELF PAY [facility] Number: Effective Repository Date:2018-02-12 02/04/2018 MARY ALICE C Primary MARY ALICE C [place] [id number] Insurance:MEDICAL WESTFALLDOB: [facility] [id number] [facility] [address]Kua: Number: Repository [phone] [id number] -7 (HP) Date:6911-30-31ZB [address] [address]IM: 02/04/2018 Secondary NOT GIVENUNK [place] Insurance:SELF PAY [facility] Number: Effective Repository Date:2018-02-04 01/26/2018 MARY ALICE C Primary MARY ALICE C [place] [id number] Insurance:MEDICAL WESTFALLDOB: [facility] [id number] [facility] [address]Tuz: Number: Repository [phone] [id number] -7 (HP) Date:9853-15-82MF [address] [address]SP: 01/26/2018 Secondary NOT GIVENUNK [place] Insurance:SELF PAY [facility] Number: Effective Repository Date:2018-01-12 01/26/2018 MARY ALICE C Primary MARY ALICE C [place] [id number] Insurance:MEDICAL WESTFALLDOB: [facility] [id number] [facility] [address]Pqj: Number: Repository [phone] [id number] -7 (HP) Date:0681-82-15GG [address] [address]XL: 01/26/2018 Secondary NOT GIVENUNK [place] Insurance:SELF PAY [facility] Number: Effective Repository Date:2018-01-26 01/26/2018 MARY ALICE C Primary MARY ALICE C [place] [id number] Insurance:MEDICAL WESTFALLDOB: [facility] [id number] [facility] [address]Myy: Number: Repository [phone] [id number] -7 (HP) Date:3384-06-38TT [address] [address]QD: 01/26/2018 Secondary NOT GIVENUNK [place] Insurance:SELF PAY [facility] Number: Effective Repository Date:2018-01-26 01/20/2018 MARY ALICE C Primary MARY ALICE C [place] [id number] Insurance:MEDICAL WESTFALLDOB: [facility] [id number] [facility] [address]Zhh: Number: Repository [phone] [id number] -7 (HP) Date:6665-36-56MW [address] [address]JO: 01/20/2018 Secondary NOT GIVENUNK [place] Insurance:SELF PAY [facility] Number: Effective Repository Date:2018-01-20 12/22/2017 MARY ALICE Primary MARY ALICE [place] [id number] Insurance:MEDICAL WESTFALLDOB: [facility] [id number] [facility] [address]Gtm: Number: Repository [phone] [id number] -7 (HP) Date:3949-88-63XN [address] [place] [address]GH: 12/22/2017 Secondary NOT GIVENUNK [place] Insurance:SELF PAY [facility] Number: Effective Repository Date:2017-12-03 12/22/2017 MARY ALICE C Primary MARY ALICE C [place] [id number] Insurance:MEDICAL WESTFALLDOB: [facility] [id number] [facility] [address]Fea: Number: Repository [phone] [id number] -7 (HP) Date:5884-96-23RC [address] [address]QX: 12/22/2017 Secondary NOT GIVENUNK [place] Insurance:SELF PAY [facility] Number: Effective Repository Date:2017-12-22 12/08/2017 MARY ALICE Primary MARY ALICE [place] [id number] Insurance:MEDICAL WESTFALLDOB: [facility] [id number] [facility] [address]Scv: Number: Repository [phone] [id number] -7 (HP) Date:6258-68-25WN [address] [address]UF: 12/08/2017 Secondary NOT GIVENUNK [place] Insurance:SELF PAY [facility] Number: Effective Repository Date:2017-10-29 12/03/2017 MARY ALICE Primary MARY ALICE [place] [id number] Insurance:MEDICAL WESTFALLDOB: [facility] [id number] [facility] [address]Waw: Number: Repository [phone] [id number] -7 (HP) Date:8434-43-29[address] [address]VD: 12/03/2017 Secondary NOT GIVENUNK [place] Insurance:SELF PAY [facility] Number: Effective Repository Date:2017-12-03
== END ==
PROVIDERS: Family Provider Family Medicine; PCP Family Medicine; Visit Provider Family Medicine
DX: I10 Essential (primary) hypertension (principal); E11.9 Type 2 diabetes mellitus without complications
CPT/HCPCS: 36415; 82043; 82570; 83036

== ENCOUNTER → 2019-01-27 09:38 | Outpatient (CLI) | payer MEDICARE, SELFPAY ==
[2019-01-27 12:44] LABS: ALB/GLOB Ratio 1.3 RATIO (0.9-2.4); AST(SGOT) 24 U/L (15-37); Alanine Aminotransfer ALT/SGPT 31 U/L (16-61); Albumin, Serum 3.9 g/dL (3.2-5.0); Alkaline Phosphatase 70 U/L (45-117); Anion Gap 8 (5-15); BUN 15 mg/dL (7-18); BUN/Creat Ratio 17.7 RATIO (10-20); Calcium,Total 8.4 mg/dL (8.5-10.1); Chloride 109 mmol/L (98-107); Creatinine, Serum 0.85 mg/dL (0.70-1.30); EST Glomerular Filtration Rate 97 mL/min (>60); Est Glom Filt Rate - Afr Amer 117 mL/min (>60); Glucose 124 mg/dL (74-106); Potassium 3.8 mmol/L (3.5-5.1); Protein, Total 6.9 g/dL (6.4-8.2); Sodium Level 144 mmol/L (136-145); Thyroid Stim Hormone (TSH) 0.95 uIU/mL (0.358-3.74)
[2019-01-27 12:52] LABS: Vitamin D,25 Hydroxy 56.9 ng/mL (29.95-100.01)
== END ==
PROVIDERS: Family Provider Family Medicine; PCP Family Medicine; Referring Provider Family Medicine; Visit Provider Family Medicine
DX: E11.9 Type 2 diabetes mellitus without complications (principal); E55.9 Vitamin D deficiency, unspecified
CPT/HCPCS: 36415; 80053; 82306; 84403; 84443

== ENCOUNTER → 2019-08-11 08:57 | Outpatient (CLI) | payer MEDICARE, SELFPAY ==
[2018-05-14 13:46] VITALS: BMI 33.3
[2019-08-11 10:35] LABS: Anion Gap 9 (5-15); BUN 14 mg/dL (7-18); BUN/Creat Ratio 16.5 RATIO (10-20); Calcium,Total 8.6 mg/dL (8.5-10.1); Chloride 109 mmol/L (98-107); Creatinine, Serum 0.85 mg/dL (0.70-1.30); EST Glomerular Filtration Rate 97 mL/min (>60); Est Glom Filt Rate - Afr Amer 117 mL/min (>60); Glucose 133 mg/dL (74-106); Potassium 3.8 mmol/L (3.5-5.1); Sodium Level 144 mmol/L (136-145)
[2019-08-11 10:36] LABS: Vitamin D,25 Hydroxy 49.8 ng/mL (29.95-100.01)
== END ==
PROVIDERS: Family Provider Family Medicine; PCP Family Medicine; Referring Provider Family Medicine; Visit Provider Family Medicine
DX: E11.9 Type 2 diabetes mellitus without complications (principal); E55.9 Vitamin D deficiency, unspecified
CPT/HCPCS: 36415; 80048; 82306

== ENCOUNTER → 2020-05-24 10:06 | Outpatient (CLI) | payer MEDICARE, SELFPAY ==
[2018-05-14 13:46] VITALS: BMI 33.3
[2020-05-24 13:15] LABS: ALB/GLOB Ratio 1.2 RATIO (0.9-2.4); AST(SGOT) 18 U/L (15-37); Alanine Aminotransfer ALT/SGPT 26 U/L (16-61); Albumin, Serum 3.8 g/dL (3.2-5.0); Alkaline Phosphatase 62 U/L (45-117); Anion Gap 5 (5-15); BUN 16 mg/dL (7-18); BUN/Creat Ratio 19.5 RATIO (10-20); Calcium,Total 8.3 mg/dL (8.5-10.1); Chloride 110 mmol/L (98-107); Cholesterol 155 mg/dL (200); Creatinine, Serum 0.82 mg/dL (0.70-1.30); EST Glomerular Filtration Rate 100 mL/min (>60); Est Glom Filt Rate - Afr Amer 121 mL/min (>60); Globulin 3.3 g/dL (2.2-4.2); Glucose 151 mg/dL (74-106); High Density Lipoprotein 41 mg/dL; PSA,Total - Annual Screen 1.75 ng/mL (0.00-4.00); Potassium 3.7 mmol/L (3.5-5.1); Protein, Total 7.1 g/dL (6.4-8.2); Sodium Level 142 mmol/L (136-145); Thyroid Stim Hormone (TSH) 1.18 uIU/mL (0.358-3.74); Triglycerides 95 mg/dL; Very Low Density Lipoprotein 19 mg/dL (5-40)
[2020-05-24 13:39] LABS: Hepatitis C Antibody Non-Reactive (Nonreactive)
== END ==
PROVIDERS: PCP Family Medicine; Referring Provider Family Medicine; Visit Provider Family Medicine
DX: E11.9 Type 2 diabetes mellitus without complications (principal); Z12.5 Encounter for screening for malignant neoplasm of prostate
CPT/HCPCS: 36415; 80053; 80061; 84153; 84403; 84443; 86803; G0103

== ENCOUNTER → 2020-11-29 10:33 | Outpatient (CLI) | payer MEDICARE, SELFPAY ==
[2018-05-14 13:46] VITALS: BMI 33.3
[2020-11-29 12:39] LABS: Anion Gap 6 (5-15); BUN 13 mg/dL (7-18); BUN/Creat Ratio 15.7 RATIO (10-20); Calcium,Total 8.4 mg/dL (8.5-10.1); Chloride 108 mmol/L (98-107); Creatinine, Serum 0.83 mg/dL (0.70-1.30); EST Glomerular Filtration Rate 98 mL/min (>60); Est Glom Filt Rate - Afr Amer 119 mL/min (>60); Glucose 159 mg/dL (74-106); Potassium 3.9 mmol/L (3.5-5.1); Sodium Level 140 mmol/L (136-145)
== END ==
PROVIDERS: PCP Family Medicine; Referring Provider Family Medicine; Visit Provider Family Medicine
DX: E11.9 Type 2 diabetes mellitus without complications (principal); E55.9 Vitamin D deficiency, unspecified
CPT/HCPCS: 36415; 80048; 82306

== ENCOUNTER → 2021-06-20 10:31 | Outpatient (CLI) | payer MEDICARE, SELFPAY ==
[2018-05-14 13:46] VITALS: BMI 33.3
[2021-06-20 12:40] LABS: ALB/GLOB Ratio 1.1 RATIO (0.9-2.4); AST(SGOT) 22 U/L (15-37); Alanine Aminotransfer ALT/SGPT 35 U/L (16-61); Albumin, Serum 3.7 g/dL (3.2-5.0); Alkaline Phosphatase 58 U/L (45-117); Anion Gap 7 (5-15); BUN 13 mg/dL (7-18); BUN/Creat Ratio 15.7 RATIO (10-20); Calcium,Total 8.5 mg/dL (8.5-10.1); Chloride 108 mmol/L (98-107); Cholesterol 155 mg/dL (200); Creatinine, Serum 0.83 mg/dL (0.70-1.30); EST Glomerular Filtration Rate 98 mL/min (>60); Est Glom Filt Rate - Afr Amer 119 mL/min (>60); Globulin 3.4 g/dL (2.2-4.2); Glucose 154 mg/dL (74-106); High Density Lipoprotein 40 mg/dL; Protein, Total 7.1 g/dL (6.4-8.2); Sodium Level 142 mmol/L (136-145); Thyroid Stim Hormone (TSH) 0.94 uIU/mL (0.358-3.74); Triglycerides 111 mg/dL; Very Low Density Lipoprotein 22 mg/dL (5-40)
== END ==
PROVIDERS: PCP Family Medicine; Visit Provider Family Medicine
DX: E11.65 Type 2 diabetes mellitus with hyperglycemia (principal); Z12.5 Encounter for screening for malignant neoplasm of prostate
CPT/HCPCS: 36415; 80053; 80061; 84153; 84443; G0103

== ENCOUNTER 2022-01-30 08:45 | Day surgery (SDC) | payer MEDICARE, SELFPAY ==
[2022-01-30] VITALS (7 sets, daily range): BP systolic 132–152; BP diastolic 71–99; PULSE 56–87; RESP 16; TEMP 36.1–36.6; O2SAT 97–100; BMI 31.1
[2022-01-30] MEDS: Lactated Ringers 1,000 ML 15 ML IV (09:22)
--- NOTE | 2022-01-30 10:00 | COLBX_PTH ---
PATIENT: MARY ALICE YAÑEZ LOC: EN U#:[id number] AGE/SX: 67/M ROOM: RE01/30/[address]: Dr. Dmitry Aquino MD : 1955 BED: DIS: 01/30/2022 SPEC #: [id number] RECD: 01/30/22 11:40 STATUS: WILMA SCHULTZ #: [id number] SCOTT: 01/30/22 10:[address]: Dimtry Aquino DEPT: SURGICAL PATHOLOGY RECD BY: Radha Mendiola ENTERED: 01/30/22 11:54 SP TYPE: COLON BX OTHR DR: Dr. Rommel Vergara MD Tissues: Transverse colon Procedures: Surgery Specimen Level IV HEADER OPERATION: Colonoscopy, polypectomy (hot snare) ? open access (MAC) PRE-OP DIAGNOSIS: Screening TISSUE SUBMITTED: Polyp, transverse colon MICROSCOPIC DIAGNOSIS Polyp transverse colon, polypectomy: Fragments of tubular adenoma. SJ:moon 01/31/2022 MICROSCOPIC DESCRIPTION Slides are reviewed. GROSS DESCRIPTION Received in fixative is one container labeled with the patient's name and designated polyp transverse colon. The specimen consists of multiple irregular fragments of light baeza soft tissue that in aggregate measure 1 x 0.2 x 0.1 cm. The specimen is totally submitted in one cassette. / SJ:rg 01/30/2022 TC:1 CPT: 24523
--- NOTE | 2022-01-30 10:26 | H&P.OPEN ---
HPI - General HPI Narrative MARY ALICE YAÑEZ, is a 67 M who presents for screening colonoscopy. They are referred from Dr. Wade. Patient states this would be his second screening colonoscopy with the last coming some 12 to 14 years ago. He denies any remarkable findings with that prior exam. He denies any current issues with his bowels and states that he has regular bowel movements once daily without significant straining. He denies noting any recent bloody or dark tarry stools. He denies any family history of inflammatory bowel disease, diverticulitis, or colon cancer. He confirms that his prep proceeded uneventfully and that his output is now primarily clear yellow with some mild sediment. [facility] Medical History (Updated 01/27/22 @ 12:09 by Nasima Hogan) Abdominal pain Abnormal EKG Arthritis Bone fracture Chronic cough Contusion of right knee Dietary restriction Difficulty swallowing Effusion of right knee joint Gallstones High cholesterol History of echocardiogram History of stress test Hypertension Kidney stones Lipoma Non-smoker Right knee pain Tear of lateral meniscus of right knee Urinary urgency Ventral hernia Wears glasses Home Medications aspirin 81 mg tablet,delayed release 81 mg PO QDAY 10/22/17 [History Last Taken Unknown] losartan 50 mg tablet 50 mg PO DAILY 10/22/17 [History Last Taken 05/14/18 07:45 50 MG] lecithin 1,200 mg PO DAILY 11/12/17 [History Last Taken Unknown] cholecalciferol (vitamin D3) [Vitamin D3] 50 mcg PO DAILY 01/27/22 [History Last Taken Unknown] magnesium 100 mg PO DAILY 01/27/22 [History Last Taken Unknown] zinc 50 mg PO DAILY 01/27/22 [History Last Taken Unknown] Allergy/AdvReac Type Severity Reaction Status Date / Time cortisone Allergy Severe Unknown Verified 01/30/22 09:28 Sulfa (Sulfonamide Allergy Mild Unknown Verified 01/30/22 09:28 Antibiotics) Family History Mother CVA (cerebral vascular accident) Diabetes Arthritis Grandfather Heart disease Surgical History (Updated 05/24/18 @ 09:04 by Geeta Dean) H/O oral surgery H/O removal of cyst History of umbilical hernia repair (~05/2018) S/P cholecystectomy S/P repair of ventral hernia Social History (Updated 05/24/18 @ 11:04 by Katheryn CALDERON KVNGIndiaC) Smoking Status: Never smoker second hand exposure: No alcohol intake: never substance use type: does not use Past Medical/Surgical History Planned Operation Planned Operative Procedure/s: Colonoscopy S.O.S: No Previous Hospitalizations/Surgeries HX Hospitalizations: No HX of Surgeries: 1984 PILONIDAL CYST COLONOSCOPY RT KNEE ARTHROSCOPY/ MENISCUS REPAIR HEVER THUMBS ORAL SURGERY ashia Any Problems With Anesthesia: No You/Your Family Experience Fever (Hyperthermia) With Anes: No Cholinesterase deficiency: No Cardiovascular Hx Chest Pain within Last 2 months: No Hx of Irregular Heartbeat and/or Afib: No Hx Heart Attack: No Hx Congestive Heart Failure: No Hx Rheumatic Fever: No Hx Hypertension: Yes (per pt, controlled on meds) Hx Internal Defibrillator: No Hx Pacemaker: No Hx Cardiac Catheterization: No Hx Cardiac Surgery/Stents/Etc.: No Hx Stress Test: Yes (12/27, ECHO 12/27) Hx Pain in Legs when Walking/Leg Cramps: No Respiratory Chronic Cough: No HX of Shortness of Breath: No Hoarseness: No Hx Chronic Obstructive Pulmonary Disease (COPD): No Hx Asthma: No Hx Emphysema: No Hx Sleep Apnea: No Hx Respiratory Tract Infection/Cold (presently): No Do You Snore Loudly (louder than talking or can be heard): No Do You Often Feel Tired/ Fatigued/ Sleepy Dring Daytime?: No Has Anyone Observed You Stop Breathing During Sleep?: No Result (for STOP score): Negative Hx Smoking: No Smoking Status: Never smoker Gastrointestinal Hx Gastroesophageal Reflux: No Hx Gastrointestinal Disorders: No Hx Gastrointestinal Bleed: No Hx Ulcer: No Hx Hiatal Hernia: No Difficulty Chewing/Swallowing: No Special diet followed at home: Yes (DIABETIC) Hx Unplanned Weight Loss of 20#: No HX Unplanned Weight Gain of 20#: No Neurological Hx Seizures: No HX Syncope/Blackout Spells/Unconsciousness: No Hx Transient Ischemic Attacks (TIA): No Hx Multiple Sclerosis: No Hx Parkinson's Disease: No Hx Head/Neck Injury: No Hx Headaches: No Hx Back Injury/Pain: No Recent Onset of Speech Difficulty: No Restless Legs: No Does patient have nerve stimulator: No Blood Disorder Hx Leukemia: No Bleeding Tendencies: Yes (nosebleeds) Hx Deep Vein Thrombosis: No Hx High Cholesterol: Yes (ON MED-lecithin) Blood Transmitted Disease: No Hx Hepatitis: No Hx Cirrhosis: No Hx Anemia: No Hx Blood Disorders: No Reproduction Is Patient Lactating: No Hx Hysterectomy: No Hx Tubal Ligation: No Are You Post Menopause: No Genitourinary Hx Renal Disease: No Musculoskeletal Hx Arthritis: Yes Hx Rheumatoid Arthritis: No Hx Gout: No Recent Onset of an Orthopedic Problem: No Endocrine Hx Diabetes: Yes (ORAL MEDS) Insulin: No Thyroid Disease: No Hx Steroid Therapy: No Psycho/Social Hx Substance Use: No Hx Alcohol Use: No Hx Anxiety: No Hx Depression: No Mental Illness: No Hx Dementia: No Miscellaneous Hx Cancer: No Recent Exposure to Contagious Disease: No Hx of C-Diff: No Any Loose Teeth: No Allergies cortisone Allergy (Severe, Verified 01/30/22 09:28) Unknown Sulfa (Sulfonamide Antibiotics) Allergy (Mild, Verified 01/30/22 09:28) Unknown Discharge Is Pt Admitted From a Alf, or a Senior Care: No Who Could Help: friends After D/C, Where Do you Plan to Go: Return Home From the PAT History Number of Risk Factors: 2 Vital Signs Vital Signs Vital Signs: 01/30/22 09:30 Temperature 97.9 F Temperature Source Temporal Pulse Rate 87 Respiratory Rate 16 Respiratory Pattern Normal Blood Pressure 143/99 H Blood Pressure Mean 113 Blood Pressure Source Monitor Blood Pressure Position Semi-Fowlers Blood Pressure Location Right Arm Pulse Ox 100 Oxygen Delivery Method Room Air Weight Weight: 235 lb 14.314 oz Body Mass Index (BMI) 31.1 Physical Exam Const alert, oriented x3 and no apparent distress Constitutional Narrative: Sleepy General Appearance: cooperative Resp normal respiratory effort GI GI Narrative: Overweight, nondistended, scars in a supraumbilical position well-healed. No hernia palpated. Soft, nontender to palpation x4 quadrants. Assessment & Plan Assessment/Plan (1) Encounter for screening for malignant neoplasm of colon: PLAN: This is a 67-year-old male with 1 prior screening colonoscopy that was unremarkable and his findings. He is at average colorectal cancer risk. He denies any present issues with his bowels and is hoping to update his maintenance health history. He confirms that his prep proceeded uneventfully. He confirms that his only blood thinner medication is a daily aspirin. We will therefore plan to proceed for update screening colonoscopy under local MAC as scheduled. Surgery Risks - Colonoscopy Risks Include but are not Limited To: Risks include but are not limited to: Bleeding, perforation requiring further surgery, inability to complete colonoscopy requiring barium enema.
--- NOTE | 2022-01-30 11:39 | OP.COLON_ITS ---
Patient Name: Jalen Blackburn Procedure Date: 01/30/2022 10:21 AM Date of : 1955 Age: 67 Procedure: Colonoscopy Indications: Screening for colorectal malignant neoplasm Providers: Dmitry Aquino MD Referring MD: Dmitry Aquino MD Medicines: See the Anesthesia note for documentation of the administered medications Patient Profile: Refer to note in patient chart for documentation of history and physical. Last Colonoscopy: more than 10 years ago. Complications: No immediate complications. Estimated blood loss: Minimal. Procedure: Pre-Anesthesia Assessment: - The heart rate, respiratory rate, oxygen saturations, blood pressure, adequacy of pulmonary ventilation, and response to care were monitored throughout the procedure. After I obtained informed consent, the scope was passed under direct vision. Throughout the procedure, the patient's blood pressure, pulse, and oxygen saturations were monitored continuously. The colonoscope was introduced through the anus and advanced to the cecum, identified by appendiceal orifice and ileocecal valve. The colonoscopy was technically difficult and complex due to multiple diverticula in the colon and poor bowel prep with stool present. Successful completion of the procedure was aided by lavage. The patient tolerated the procedure well. The quality of the bowel preparation was poor. Scope In: 10:39:20 AM Scope Withdrawal Time 0 hours 24 minutes 24 seconds Scope Out: 11:27:32 AM Total Procedure Duration Time 0 hours 48 minutes 12 seconds Findings: Many small and large-mouthed diverticula were found in the sigmoid colon, descending colon, transverse colon and ascending colon. No biopsies or other specimens were collected for this exam. A 5 mm polyp was found in the proximal transverse colon. The polyp was pedunculated. The polyp was removed with a hot snare. Resection and retrieval were complete. Estimated blood loss was minimal. The exam was otherwise without abnormality on direct and retroflexion views. Impression: - Preparation of the colon was poor. - Diverticulosis in the sigmoid colon, in the descending colon, in the transverse colon and in the ascending colon. No specimens collected. - One 5 mm polyp in the proximal transverse colon, removed with a hot snare. Resected and retrieved. - The examination was otherwise normal on direct and retroflexion views. Recommendation: - Discharge patient to home (via wheelchair). - High fiber diet today. - Use original regular Metamucil one teaspoon PO BID daily. - Await pathology results. - Repeat colonoscopy date to be determined after pending pathology results are reviewed for surveillance based on pathology results. - Telephone my office for pathology results in 1 week. - Continue present medications. Procedure Code(s): --- Professional --- 56299, Colonoscopy, flexible; with removal of tumor(s), polyp(s), or other lesion(s) by snare technique Diagnosis Code(s): --- Professional --- Z12.11, Encounter for screening for malignant neoplasm of colon D12.3, Benign neoplasm of transverse colon (hepatic flexure or splenic flexure) K57.30, Diverticulosis of large intestine without perforation or abscess without bleeding CPT copyright 2017 [employer]. All rights reserved. The codes documented in this report are preliminary and upon computer language coder review may be revised to meet current compliance requirements. Dmitry Aquino MD 01/30/2022 11:38:20 AM This report has been signed electronically. Number of Addenda: 0 Note Initiated On: 01/30/2022 10:21 AM
--- NOTE | 2022-01-30 11:40 | OP.CCLET_ITS ---
01/30/2022 Stanislav Vergara [address] [place] [address] Re : Colonoscopy procedure for Jalen Burlington Dear Dr. Vergara This procedure was performed on January. My impressions and recommendations are as follows: Impressions : - Preparation of the colon was poor. - Diverticulosis in the sigmoid colon, in the descending colon, in the transverse colon and in the ascending colon. No specimens collected. - One 5 mm polyp in the proximal transverse colon, removed with a hot snare. Resected and retrieved. - The examination was otherwise normal on direct and retroflexion views. Recommendations : - Discharge patient to home (via wheelchair). - High fiber diet today. - Use original regular Metamucil one teaspoon PO BID daily. - Await pathology results. - Repeat colonoscopy date to be determined after pending pathology results are reviewed for surveillance based on pathology results. - Telephone my office for pathology results in 1 week. - Continue present medications. My findings are described in the full procedure note, which is enclosed. If I can be of further assistance, please feel free to contact me at Doctor phone number(s): , Work: . Sincerely, Dmitry Aquino MD 01/30/2022 11:38:20 AM This report has been signed electronically.
== END 2022-01-30 23:59 | disposition home or self-care (01) ==
LOC: EN 08:50 → AC 08:51
PROVIDERS: PCP Family Medicine; Referring Provider Surgery; Visit Provider Surgery
PROC: 0DJD8ZZ Inspection of Lower Intestinal Tract, Via Natural or Artificial Opening Endoscopic (ICD-10-PCS; CPT 45378; principal; 2022-01-30 09:55)
DX: Z12.11 Encounter for screening for malignant neoplasm of colon (principal); E11.9 Type 2 diabetes mellitus without complications; D12.3 Benign neoplasm of transverse colon; K57.30 Diverticulosis of large intestine without perforation or abscess without bleeding; I10 Essential (primary) hypertension; E78.00 Pure hypercholesterolemia, unspecified; Z79.82 Long term (current) use of aspirin; Z87.19 Personal history of other diseases of the digestive system; Z87.442 Personal history of urinary calculi; Z79.899 Other long term (current) drug therapy; Z90.49 Acquired absence of other specified parts of digestive tract
CPT/HCPCS: 45385; 87426; 88305; C9803; J7120; J2405

== ENCOUNTER → 2022-04-17 | Outpatient (CLI) | payer MEDICARE, SELFPAY ==
[2022-04-17 15:25] LABS: Hemoglobin A1c 9.6 % (3.8-5.6)
[2022-04-17 15:27] LABS: Anion Gap 6 (5-15); BUN 15 mg/dL (7-18); BUN/Creat Ratio 17.9 RATIO (10-20); Calcium,Total 8.8 mg/dL (8.5-10.1); Chloride 106 mmol/L (98-107); Cholesterol 159 mg/dL (200); Creatinine, Serum 0.84 mg/dL (0.70-1.30); EST Glomerular Filtration Rate 97 mL/min (>60); Est Glom Filt Rate - Afr Amer 117 mL/min (>60); Glucose 213 mg/dL (74-106); High Density Lipoprotein 37 mg/dL; Potassium 4.1 mmol/L (3.5-5.1); Sodium Level 141 mmol/L (136-145); Triglycerides 146 mg/dL; Very Low Density Lipoprotein 29 mg/dL (5-40)
== END | disposition home or self-care (01) ==
LOC: MFPLAB 11:48
PROVIDERS: PCP Family Medicine; Referring Provider Family Medicine; Visit Provider Family Medicine
DX: E11.65 Type 2 diabetes mellitus with hyperglycemia (principal)
CPT/HCPCS: 36415; 80048; 80061; 83036

== ENCOUNTER 2022-08-26 07:25 | Outpatient (RCR) | payer MEDICARE, SELFPAY | END 2022-09-08 23:59 | LOC: DC 07:25 | PROVIDERS: PCP Family Medicine; Referring Provider Family Medicine; Visit Provider Family Medicine | DX: E11.9 Type 2 diabetes mellitus without complications (principal) | CPT/HCPCS: 97802 ==

== ENCOUNTER → 2022-12-11 | Outpatient (CLI) | payer MEDICARE, SELFPAY ==
[2022-12-11 13:04] LABS: ALB/GLOB Ratio 1.1 RATIO (0.9-2.4); AST(SGOT) 27 U/L (15-37); Alanine Aminotransfer ALT/SGPT 34 U/L (16-61); Albumin, Serum 3.9 g/dL (3.2-5.0); Alkaline Phosphatase 64 U/L (45-117); Anion Gap 9 (5-15); BUN 17 mg/dL (7-18); BUN/Creat Ratio 18.7 RATIO (10-20); Calcium,Total 8.9 mg/dL (8.5-10.1); Chloride 106 mmol/L (98-107); Cholesterol 156 mg/dL (200); Creatinine, Serum 0.91 mg/dL (0.70-1.30); EST Glomerular Filtration Rate 88 mL/min (>60); Est Glom Filt Rate - Afr Amer 106 mL/min (>60); Globulin 3.5 g/dL (2.2-4.2); Glucose 173 mg/dL (74-106); High Density Lipoprotein 39 mg/dL; PSA,Total - Annual Screen 1.75 ng/mL (0.00-4.00); Potassium 3.7 mmol/L (3.5-5.1); Protein, Total 7.4 g/dL (6.4-8.2); Sodium Level 143 mmol/L (136-145); Thyroid Stim Hormone (TSH) 0.91 uIU/mL (0.358-3.74); Triglycerides 156 mg/dL; Very Low Density Lipoprotein 31 mg/dL (5-40)
== END | disposition home or self-care (01) ==
LOC: MFPLAB 10:31
PROVIDERS: PCP Family Medicine; Referring Provider Family Medicine; Visit Provider Family Medicine
DX: E78.5 Hyperlipidemia, unspecified (principal); Z12.5 Encounter for screening for malignant neoplasm of prostate
CPT/HCPCS: 36415; 80053; 80061; 84153; 84443; G0103

== ENCOUNTER → 2023-07-28 | Outpatient (CLI) | payer MEDICARE, SELFPAY ==
--- NOTE | 2023-07-28 15:06 | VDLE_ITS ---
Reason For Study: RLE Swelling RIGHT LEFT GSV is normal. CFV is compressible, spontaneous, phasic, CFV is compressible, spontaneous, phasic, competent, and demonstrates normal competent and demonstrates normal augmentation. augmentation. FV is compressible, spontaneous, phasic, competent and demonstrates normal augmentation. POP V is compressible, spontaneous, phasic, competent and demonstrates normal augmentation. T/P Trunk is compressible. PTV is compressible. RT PerV is compressible. Acute superficial vein thrombosis is noted in the Rt Anterior Accessory Saphenous Veins. They are dilated and NONCOMPRESSIBLE with intraluminal echoes noted. Procedure This is a venous duplex using B-mode, color flow and spectral Doppler. Exam performed in department. The exam was diagnostic. A preliminary report was called and/or faxed to RN at [facility] office. VL/Venous Duplex US, Unilateral Interpretation Summary Acute superficial vein thrombosis is noted in the right anterior accessory saph enous veins Deep veins of the right lower extremity are patent and compressible segmentally . There is no evidence of right lower extremity deep vein thrombosis. The right great sapheno us vein appears patent and compressible segmentally. Ordering Physician: Stanislav Vergara Referring Physician: Stanislav Vergara Performed By: Benjamin Gardner RVT
== END | disposition home or self-care (01) ==
LOC: CVS 15:04
PROVIDERS: PCP Family Medicine; Referring Provider Family Medicine; Visit Provider Family Medicine
DX: M79.89 Other specified soft tissue disorders (principal)
CPT/HCPCS: 93971

== ENCOUNTER → 2024-01-14 | Outpatient (CLI) | payer MEDICARE, SELFPAY ==
--- OUTSIDE RECORDS SUMMARY | 2024-01-14 11:15 | XMS RPT_ITS | CCD ---
Author Name Unknown Address [address] [place] [address] Organization [facility] Care Team Providers Care Vp Research Name Role Phone Jg HOLCOMB, Angel Crawford Unavailable Yensho SERVICENOW ADMINISTRATOR, Emmy A Unavailable Unavailab le Yensho SERVICENOW ADMINISTRATOR, Emmy A Unavailable Unavailab le Yensho SERVICENOW ADMINISTRATOR, Emmy A Unavailable Unavailab le Rivers SERVICENOW ADMINISTRATOR, Iona Dale Unavailable Unavaila JASS Caceres Unavailable Unavailable Allergies Allergy Classification Reported Allergen(s) Allergy Type Date of Onset Reaction(s) Facility (5 sources) cortisone drug allergy 7 cortisone injections - severe myalgia Pulmonary [facility] Work Phone: (7 sources) cortisone; Translations: [CORTISONE] drug allergy 9 [facility] Work Phone: (6 sources) Sulfonamides (Antibiotic) drug allergy 7 unsure [facility] Work Phone: (1 source) iohexol; Translations: [IOHEXOL] Drug Allergy 6 [facility] (1 source) Sulfonamides (Antibiotic); Translations: [SULFA (SULFONAMIDE ANTIBIOTICS)] Propensity to adverse reactions to drug (disorder) 8 [facility] (1 source) OYSTERS; Translations: [OYSTERS] Propensity to adverse reactions to food (disorder) 8 [facility] (1 source) OTHER; Translations: [OTHER] Propensity to adverse reactions (disorder) 8 [facility] Medications Completed/Discontinued Medications Medication Drug Class(es) Dates Sig (Normalized) Sig (Original) acetaminophen 300 mg / codeine phosphate 30 mg oral tablet (12 sources) Opioid Agonist Start: 11-13-2011 End: 01-22-2012 take 1 tablet by mouth three times daily as needed TYLENOL WITH CODEINE #3 300-30 MG TABS One tablet by mouth three times daily as needed ACETAMINOPHEN-CODE INE [id number] Eliazar Patel MD Problems Active Problems Problem Classification Problem Date Documented Date Episodic/Chronic Diabetes mellitus without complication (6 sources) Type 2 diabetes mellitus; Translations: [Type 2 diabetes mellitus without complications] Onset: 09-24-2017 09-24-2017 Chronic Joint disorders and dislocations; trauma-related (12 sources) Derangement of knee; Translations: [Unspecified internal derangement of right knee] Onset: 11-13-2011 Resolved: 12-16-2011 12-16-2011 Chronic Osteoarthritis (12 sources) Osteoarthritis of knee; Translations: [Osteoarthritis of knee, unspecified] Onset: 12-11-2011 Resolved: 12-15-2011 12-15-2011 Chronic Unclassified (1 source) Unknown / UNK(Unknown) Onset: 05-28-2017 Past or Other Problems Problem Classification Problem Date Documented Date Episodic/Chronic Abdominal hernia (6 sources) Hernia of anterior abdominal wall; Translations: [Ventral hernia without obstruction or gangrene] Onset: 09-24-2017 09-24-2017 Episodic Abdominal pain (6 sources) Abdominal pain; Translations: [Unspecified abdominal pain] Onset: 09-24-2017 09-24-2017 Episodic Biliary tract disease (6 sources) Gallstone; Translations: [Calculus of gallbladder without cholecystitis without obstruction] Onset: 09-24-2017 09-24-2017 Episodic Joint disorders and dislocations; trauma-related (6 sources) Tear of lateral meniscus of knee; Translations: [Other tear of lateral meniscus, current injury, right knee] Onset: 12-11-2011 12-11-2011 Episodic Other and unspecified benign neoplasm (6 sources) Lipoma (clinical); Translations: [Benign lipomatous neoplasm, unspecified] Onset: 09-24-2017 09-24-2017 Episodic Other lower respiratory disease (6 sources) Chronic cough; Translations: [Cough] Onset: 09-24-2017 09-24-2017 Episodic Other non-traumatic joint disorders (12 sources) Knee joint effusion; Translations: [Knee pain] Onset: 11-13-2011 11-13-2011 Episodic Superficial injury; contusion (6 sources) Contusion of knee; Translations: [Contusion of right knee] Onset: 11-13-2011 11-13-2011 Episodic Results Test Name Value Interpretation Reference Range Facil ity Vital Signs Date Time Vital Sign Value Performing Clinician Facility 09-28-2017 06:29-0500 BMI (Body Mass Index) 33.28 kg/m2 Iona Rivers LPN [facility] Work Phone: 09-28-2017 06:29-0500 Body Temperature 97.3 [degF] Iona Rivers LPN [facility] Work Phone: 09-28-2017 06:29-0500 BP Diastolic 79 mm[Hg] Ionamaría Rivers LPN [facility] Work Phone: 09-28-2017 06:29-0500 BP Systolic 128 mm[Hg] Iona Tita SERVICENOW ADMINISTRATOR [facility] Work Phone: 09-28-2017 06:29-0500 Height 186.06 cm Iona Rivers LPN [facility] Work Phone: 09-28-2017 06:29-0500 Pulse (Heart Rate) 78 /min Iona Rivers LPN [facility] Work Phone: 09-28-2017 06:29-0500 Respiratory Rate 18 /min Iona Rivers LPN [facility] Work Phone: 09-28-2017 06:29-0500 Weight 115.21 kg Iona Rivers LPN [facility] Work Phone: 09-24-2017 14:51-0500 BMI (Body Mass Index) 33.29 kg/m2 Angel Gregorio MD [facility] Work Phone: 09-24-2017 14:51-0500 Body Temperature 98 [degF] Angel Gregorio MD [facility] Work Phone: 09-24-2017 14:51-0500 BP Diastolic 89 mm[Hg] Angel Gregorio MD [facility] Work Phone: 09-24-2017 14:51-0500 BP Systolic 138 mm[Hg] Angel Gregorio MD [facility] Work Phone: 09-24-2017 14:51-0500 Height 186.06 cm Angel Gregorio MD [facility] Work Phone: 09-24-2017 14:51-0500 Pulse (Heart Rate) 75 /min Angel Gregorio MD [facility] Work Phone: 09-24-2017 14:51-0500 Respiratory Rate 20 /min Angel Gregorio MD [facility] Work Phone: 09-24-2017 14:51-0500 Weight 115.26 kg Angel Gregorio MD [facility] Work Phone: 02-12-2012 08:55-0400 BSA (Body Surface Area) 2.36 m2 Angel Gregorio MD [facility] Work Phone: Encounters Encounter Date Encounter Type Care Provider Facility Start: 05-28-2017 End: 05-28-2017 Ambulatory J[facility] [place] Plan of Treatment Date Care Activity Detail Author Start: 10-27-2017 End: 10-27-2017 Appointment Appointment [facility] [place] Work Phone: Start: 09-28-2017 End: 09-28-2017 Follow Up Appt 1 month Follow Up Appt 1 month [facility] Work Phone: Start: 09-28-2017 End: 09-28-2017 Pulmonary Function Test - complete Pulmonary Function Test - complete [facility] Work Phone: Start: 09-28-2017 End: 09-28-2017 Appointment Appointment [facility] Work Phone: Start: 09-28-2017 End: 09-28-2017 Follow Up Appt 1 month Follow Up Appt 1 month [facility] Work Phone: Start: 09-28-2017 End: 09-28-2017 Pulmonary Function Test - complete Pulmonary Function Test - complete [facility] Work Phone: Start: 09-24-2017 End: 09-24-2017 Appointment Appointment [facility] Work Phone: Start: 09-24-2017 End: 09-24-2017 Pulmonary Referral Pulmonary Referral Jose David Montgomery, [facility] [place], [address], [place], [address] [facility] Work Phone: Start: 09-24-2017 End: 09-24-2017 Us abdominal real time w/image documentation US Abdomen, RUQ [facility] Work Phone: Start: 09-24-2017 End: 10-28-2017 Pulmonary Referral Pulmonary Referral Jose David Montgomery, [facility], [address], [place], [address] [facility] Work Phone: Start: 09-24-2017 End: 09-24-2017 Us exam, abdom, complete US Abdomen, RUQ [facility] Work Phone: Start: 01-22-2012 End: 01-22-2012 PT-Orthotics PT-Orthotics [facility] Work Phone: Start: 01-22-2012 End: 01-22-2012 PT-Orthotics PT-Orthotics [facility] Work Phone: Start: 11-24-2011 End: 11-24-2011 PT-Orthotics PT-Orthotics [facility] Work Phone: Start: 11-24-2011 End: 11-24-2011 PT-Orthotics PT-Orthotics [facility] Work Phone: Summary Purpose Family History No Family History Records Found Advance Directives No Advanced Directives Records Found Additional Source Comments (unrecognized sect ion and content) No Status Records Found INFORMATION SOURCE (unrecogn ized section and content) FOR RECORDS PERTAINING TO PATIENTS WHO ARE OR HAVE BEEN ENROLLED IN A CHEMICAL DEPENDENCY/SUBSTANCEABUSE PROGRAM, SOME INFORMATION MAY BE OMITTED. This clinical summary was aggregated from multiple sources. Caution should be exercised in using it in the provision of clinical care. This summary normalizes information from multiple sources, and as a consequence, information in this document may materially change the coding, format and clinical context of patient data. In addition, data may be omitted in some cases. CLINICAL DECISIONS SHOULD BE BASED ON THE PRIMARY CLINICAL RECORDS. [facility] [employer] [facility]. provides no warranty or guarantee of the accuracy or completeness of information in this document.
[2024-01-14 13:53] LABS: AST(SGOT) 29 U/L (15-37); Alanine Aminotransfer ALT/SGPT 38 U/L (16-61); Albumin, Serum 3.6 g/dL (3.2-5.0); Alkaline Phosphatase 67 U/L (45-117); Anion Gap 11 (5-15); BUN 14 mg/dL (7-18); BUN/Creat Ratio 13.3 RATIO (10-20); Calcium,Total 8.9 mg/dL (8.5-10.1); Chloride 109 mmol/L (98-107); Cholesterol 135 mg/dL (200); Creatinine, Serum 1.05 mg/dL (0.70-1.30); EST Glomerular Filtration Rate 74 mL/min (>60); Est Glom Filt Rate - Afr Amer 90 mL/min (>60); Globulin 3.6 g/dL (2.2-4.2); Glucose 135 mg/dL (74-106); High Density Lipoprotein 35 mg/dL; PSA,Total - Annual Screen 2.43 ng/mL (0.00-4.00); Potassium 4.5 mmol/L (3.5-5.1); Protein, Total 7.2 g/dL (6.4-8.2); Sodium Level 143 mmol/L (136-145); Thyroid Stim Hormone (TSH) 0.81 uIU/mL (0.358-3.74); Triglycerides 119 mg/dL; Very Low Density Lipoprotein 24 mg/dL (5-40)
== END | disposition home or self-care (01) ==
LOC: MFPLAB 10:53
PROVIDERS: PCP Family Medicine; Visit Provider Family Medicine
DX: E11.22 Type 2 diabetes mellitus with diabetic chronic kidney disease (principal); Z12.5 Encounter for screening for malignant neoplasm of prostate
CPT/HCPCS: 36415; 80053; 80061; 84153; 84443; G0103

== ENCOUNTER → 2025-01-12 | Outpatient (CLI) | payer MEDICARE, SELFPAY ==
[2025-01-12 12:36] LABS: Hemoglobin 19.7 g/dL (13.0-16.5); Mean Corp Hgb Conc 33.3 g/dL (32-36); Mean Corpuscular Hgb 28.6 pg (27.0-32.0); Mean Corpuscular Volume 85.8 fL (80-94); Platelet Count 495 K/mm3 (150-450); RBC Distribution Width CV 15.7 % (11.6-14.6); RBC Distribution Width SD 43.7 fl (35.1-43.9); White Blood Count 12.5 K/mm3 (4.4-11.0)
[2025-01-12 12:41] LABS: Hematocrit 59.2 % (40-54)
[2025-01-12 12:42] LABS: Pathologist Review May foll
[2025-01-12 13:26] LABS: ALB/GLOB Ratio 1.3 RATIO (0.9-2.4); AST(SGOT) 29 U/L (<=37); Alanine Aminotransfer ALT/SGPT 26 U/L (<=46); Albumin, Serum 4.2 g/dL (3.4-4.8); Alkaline Phosphatase 67 U/L (40-129); Anion Gap 12 (5-15); BUN 16 mg/dL (4-19); BUN/Creat Ratio 15.8 RATIO (10-20); Calcium,Total 9.3 mg/dL (7.6-11.0); Carbon Dioxide 24.6 mmol/L (21.0-32.0); Chloride 107 mmol/L (98-108); Creatinine, Serum 1.03 mg/dL (0.70-1.20); EST Glomerular Filtration Rate 78 (>60); Globulin 3.1 g/dL (2.2-4.2); Glucose 144 mg/dL (70-99); Potassium 4.3 mmol/L (3.3-5.1); Protein, Total 7.3 g/dL (5.9-8.4); Sodium Level 144 mmol/L (133-145); Total Bilirubin 0.97 mg/dL (0.00-1.30); Vitamin B12 596 pg/mL (180-914); Vitamin D,25 Hydroxy 38.6 ng/mL (30-100)
== END | disposition home or self-care (01) ==
LOC: MTLAB 10:11
PROVIDERS: PCP Family Medicine; Referring Provider Family Medicine; Visit Provider Family Medicine
DX: E11.59 Type 2 diabetes mellitus with other circulatory complications (principal); I48.91 Unspecified atrial fibrillation; E11.22 Type 2 diabetes mellitus with diabetic chronic kidney disease; E55.9 Vitamin D deficiency, unspecified; Z12.5 Encounter for screening for malignant neoplasm of prostate
CPT/HCPCS: 80053; 82306; 82607; 83735; 84443; 85027

== ENCOUNTER → 2025-01-19 | Outpatient (CLI) | payer MEDICARE, SELFPAY ==
--- NOTE | 2025-01-19 08:55 | RAD_ITS ---
EXAM: XR Chest, 2 Views CLINICAL INDICATION: ELEVATED H/H TECHNIQUE: Frontal and lateral views of the chest. COMPARISON: No relevant prior studies available. FINDINGS: LUNGS AND PLEURAL SPACES: See below. HEART: Cardiomegaly with mild congestion. MEDIASTINUM: Unremarkable. Normal mediastinal contour. BONES/JOINTS: Unremarkable. No acute fracture. RAD/Chest PA and Lateral IMPRESSION: Cardiomegaly with mild congestion. Reading [facility]
[2025-01-19 10:34] LABS: Absolute Lymphocyte Count 1.05 X10^3/uL (0.83-4.51); Absolute Neutrophil Count 8.6 X10^3/uL (2.0-7.7); Basophil% 0.9 % (0-1); Eosinophil# 0.23 X10^3/uL; Eosinophils% 2.1 % (0-5); Lymphocyte # 1.05 X10^3/ul (0.83-4.51); Lymphocyte % 9.6 % (19-41); Mean Corp Hgb Conc 32.5 g/dL (32-36); Mean Corpuscular Hgb 27.6 pg (27.0-32.0); Mean Corpuscular Volume 84.9 fL (80-94); Mean Platelet Vol. 11.2 fl (6.2-12.0); Monocyte# 0.86 X10^3/uL; Monocyte% 7.9 % (0-10); NRBC Flagged by Analyzer 0 % (0-5); Neutrophil # 8.64 X10^3/uL (2.7-7.7); Platelet Count 473 K/mm3 (150-450); RBC Distribution Width CV 15.8 % (11.6-14.6); Red Blood Count 6.82 M/mm3 (4.6-6.2); White Blood Count 10.9 K/mm3 (4.4-11.0)
[2025-01-19 10:35] LABS: Color, Urine Yellow (Yellow); Glucose, Dipstick Normal (Normal); Ketone-Dipstick Negative (Negative); Leukocyte Esterase-Dipstick Negative /ul (Negative); Nitrite-Dipstick Negative (Negative); Occult Blood-Urine Negative /ul (Negative); Protein-Dipstick 30 mg/dl (Negative); Specific Gravity, Urine 1.025 (1.002-1.030); Urine Bilirubin Dipstick Negative (Negative); Urine Clarity Clear (Clear); Urine Urobilinogen Normal (Normal)
[2025-01-19 10:44] LABS: Hematocrit 57.9 % (40-54)
[2025-01-19 10:47] LABS: Differential Indicated SCAN CRITERIA MET; Hemoglobin 18.8 g/dL (13.0-16.5)
[2025-01-19 11:15] LABS: Pathologist Review May foll
[2025-01-20 15:08] LABS: Erythropoietin 2.5 mIU/mL (2.6-18.5)
== END | disposition home or self-care (01) ==
PROVIDERS: PCP Family Medicine; Referring Provider Family Medicine; Visit Provider Family Medicine
DX: E11.59 Type 2 diabetes mellitus with other circulatory complications (principal)
CPT/HCPCS: 36415; 71046; 81002; 82668; 85025

== ENCOUNTER → 2025-02-03 | Outpatient (CLI) | payer MEDICARE, SELFPAY ==
--- NOTE | 2025-02-03 09:02 | ECHOCS_ITS ---
Reason For Study Reason For Study: A-FIB Procedure This was a 2D Doppler, Color Flow transthoracic echocardiogram. The study was technically difficult. Due to body habitus. Contrast injection was performed. Exam performed in department. Left Ventricle Normal LV size. Left ventricular systolic function is normal. The left ventricular ejection fraction is 55 %. No regional wall motion abnormalities noted. Right Ventricle Normal RV size. Normal systolic function. Atria The left atrium is mildly enlarged. Normal right atrium. Mitral Valve Normal mitral valve. Tricuspid Valve Normal tricuspid valve. Aortic Valve Trisinus/trileaflet aortic valve. Pulmonic Valve Normal pulmonic valve. Great Vessels Normal aortic root. The pulmonary artery is normal size. Inferior vena cava collapse with respiration. Pericardium/Pleural No pericardial effusion. Medication 22 gauge I.V. with prn adaptor inserted into left arm. Diluted definity 2.0ml given slow IV push to enhance endocardial definition. MMode/2D Measurements & Calculations LVIDd: 4.7 cm IVSd: 1.5 cm Ao root diam: 4.0 cm LVIDs: 3.1 cm LVPWd: 1.2 cm RVDd: 3.2 cm FS: 34.7 % LAV(MOD-bp): 76.9 ml LVAd ap4: 28.6 cm2 SV(MOD-sp4): 46.5 ml LAV(MOD-bp) Indexed: 33.4 ml/m2 LVLd ap4: 7.7 cm SI(MOD-sp4): 20.2 ml/m2 LAV(MOD-sp2): 73.3 ml EDV(MOD-sp4): 89.5 ml LAV(MOD-sp4): 79.0 ml EDV(sp4-el): 90.0 ml LVAs ap4: 19.1 cm2 LVLs ap4: 7.0 cm ESV(MOD-sp4): 42.9 ml ESV(sp4-el): 44.0 ml EF(MOD-sp4): 52.0 % EF(sp4-el): 51.1 % SV(sp4-el): 46.0 ml LA A4 area: 24.6 cm2 LA dimension(2D): 4.9 cm Doppler Measurements & Calculations MV E max krunal: 65.4 cm/sec Lat Peak E' Krunal: 4.3 cm/sec Med Peak E' Krunal: 4.9 cm/sec E/E' lat: 15.2 E/E' med: 13.3 Ao V2 max: 138.0 cm/sec LV V1 max: 78.1 cm/sec PA V2 max: 74.6 cm/sec Ao max P.6 mmHg LV V1 max P.4 mmHg Ao V2 mean: 102.7 cm/sec LV V1 mean P.4 mmHg Ao mean P.7 mmHg LV V1 mean: 56.3 cm/sec Ao V2 VTI: 23.1 cm LV V1 VTI: 13.3 cm AV (velocity ratio): 0.58 ECHO/Echo Complete W/ Contrast Interpretation Summary Normal LV size. Left ventricular systolic function is normal. The left ventricular ejection fraction is 55 %. Contrast injection was performed. Ordering Physician: Rommel Vergara Referring Physician: Rommel Vergara Performed By: Delphine Allen, TANYA, RVT
== END | disposition home or self-care (01) ==
LOC: CVS 08:59
PROVIDERS: PCP Family Medicine; Referring Provider Family Medicine; Visit Provider Family Medicine
DX: I48.91 Unspecified atrial fibrillation (principal); R94.31 Abnormal electrocardiogram [ECG] [EKG]
CPT/HCPCS: 93306; Q9957; A4216; C8929

== ENCOUNTER → 2025-04-20 | Outpatient (CLI) | payer MEDICARE, SELFPAY ==
[2025-04-20 12:59] LABS: Microalbumin,Random Urine 66.9 mg/L (NO RANGE EST.); Microalbumin:Creatinine Ratio 365.6 mg/g CRE
== END | disposition home or self-care (01) ==
LOC: LABSPEC 11:05
PROVIDERS: PCP Family Medicine; Referring Provider Family Medicine; Visit Provider Family Medicine
DX: E11.9 Type 2 diabetes mellitus without complications (principal)
CPT/HCPCS: 82043; 82570

== ENCOUNTER → 2025-07-27 | Outpatient (CLI) | payer MEDICARE, SELFPAY ==
[2025-07-27 18:06] LABS: Creatinine, Urine (random) 245.00 mg/dL (39.00-259.00); Microalbumin,Random Urine 32.1 mg/L (<20 mg/L)
== END | disposition home or self-care (01) ==
LOC: LABSPEC 12:06
PROVIDERS: PCP Family Medicine; Visit Provider Family Medicine
DX: E11.9 Type 2 diabetes mellitus without complications (principal)
CPT/HCPCS: 82043; 82570